=== PATIENT | male | born 1940 | race Caucasian/White ===

== ENCOUNTER 2019-01-30 17:42 | Observation (INO) ==
[2019-01-30 18:12] LABS: Basophils % 0.9 %; Eosinophils # 0.2 K/mcL (0.0-0.6); Eosinophils % 4.6 %; Hematocrit 28.8 % (37.5-50.1); Hemoglobin 9.4 g/dL (12.9-16.9); Immature Granulocytes % 0.3 % (0-4); Lymphocytes % 27.5 %; Mean Corpuscular HGB Conc 32.6 g/dL (31.6-35.5); Mean Platelet Volume 10.7 fL (9.4-12.4); Monocytes # 0.9 K/mcL (0.0-1.3); Monocytes % 26.3 %; Neutrophils # 1.4 K/mcL (1.6-8.9); Platelet Count 196 K/mcL (140-400); Red Blood Count 2.94 M/mcL (4.19-5.50); Red Cell Distribution Width 14.9 % (11.5-14.5); Segmented Neutrophils % 40.4 %; White Blood Count 3.5 K/mcL (4.3-11.1)
[2019-01-30 18:46] LABS: Calcium 9.2 mg/dL (8.6-10.3); Potassium 4.5 mEq/L (3.5-5.1); Troponin I 0.07 ng/mL (< 0.04)
[2019-01-30 18:47] LABS: Platelet Estimate Normal (Normal)
[2019-01-30] MEDS ORDERED: 0.9 % Sodium Chloride 1,000 ML IVC ONE (19:01)
[2019-01-30] MEDS ORDERED: Isovue-370 500 ML BOTTLE IVP ONE ×2 (19:01→19:45)
--- NOTE | 2019-01-30 19:23 | Emergency Department Note ---
Disposition Clinical Impression: Elevated troponin, Shortness of breath Community acquired pneumonia Qualifiers: Laterality: left Lung location: lower lobe of lung Qualified Code(s): J18.1 - Lobar pneumonia, unspecified organism Multiple myeloma Qualifiers: Multiple myeloma remission status: not in remission Qualified Code(s): C90.00 - Multiple myeloma not having achieved remission Disposition: Admitted As Inpatient Condition: Fair Time of Disposition: 23:49 General Adult HPI - General Chief complaint: ED Shortness of Breath/Dyspnea Stated complaint: ISABELA Time Seen by Provider: 01/30/19 18:47 Source: patient, family Mode of arrival: ambulatory Limitations: no limitations Nursing Notes Reviewed: Yes Vital Signs Reviewed: Yes - History of Present Illness HPI Narrative: 78-year-old male with significant past medical history of multiple myeloma currently on IV and oral chemotherapy and COPD with no oxygen requirement presenting to the emergency department chief complaint of shortness of breath. Patient states for the past 3 days he has had worsening shortness of breath and pleuritic chest pain on the left side. Last evening he had chest pain across his chest that spontaneously resolved so he did not come in for further evaluation. No history of coronary artery disease. No anticoagulation. Daughter at bedside states that the chemotherapy he is currently on was recently started approximately one month ago and they were told that this medication could cause blood clots. Patient denies any leg swelling, abdominal pain, nausea or vomiting. Denies any recent fevers. No sputum production. Pain Scale: 0 - Related Data Home Medications Medication Instructions Recorded Confirmed Albuterol Sulfate [Proair Hfa] 2 puff IH Q6HR PRN 08/08/18 01/31/19 Aspirin [Lo-Dose Aspirin EC] 81 mg PO DAILY 08/08/18 01/31/19 Cholecalciferol (Vitamin D3) 5,000 unit PO DAILY 08/08/18 01/31/19 [Vitamin D] Cyanocobalamin (Vitamin B-12) 2,500 mcg PO DAILY 08/08/18 01/31/19 [Vitamin B-12] Finasteride [Proscar] 5 mg PO DAILY 08/08/18 01/31/19 Gabapentin [Neurontin] 900 mg PO HS 08/08/18 01/31/19 GlipiZIDE XL (24 HR) [Glucotrol XL] 2.5 mg PO 0800 08/08/18 01/31/19 Losartan Potassium [Cozaar] 50 mg PO DAILY 08/08/18 01/31/19 Montelukast [Singulair] 10 mg PO HS 08/08/18 01/31/19 Multivit-Min/FA/Lycopen/Lutein 500 mg PO DAILY 08/08/18 01/31/19 [Centrum Silver Tablet] [place]-3/Dha/Epa/Fish Oil [Fish Oil 1 cap PO DAILY 08/08/18 01/31/19 1,000 mg Softgel] Pioglitazone HCl [Actos] 45 mg PO DAILY 08/08/18 01/31/19 Ranitidine HCl [Acid Hydro Mechanic] 150 mg PO BID 08/08/18 01/31/19 Simvastatin [Zocor] 40 mg PO HS 08/08/18 01/31/19 Fluticasone Propionate Nasal 1 spray NS DAILY PRN 11/29/18 01/31/19 [Flonase] Oxycodone HCl/Acetaminophen 1 each PO Q6HR PRN 12/27/18 01/31/19 [Percocet 10-325 mg Tablet] Lenalidomide [Revlimid] 10 mg PO DAILY 01/31/19 01/31/19 Umeclidinium Alexander [Incruse 1 puff IH DAILY 01/31/19 01/31/19 Ellipta] Previous Rx's Medication Instructions Recorded Ondansetron HCl 4 mg PO Q8HR PRN #20 tablet 09/13/18 Acyclovir [Zovirax] 400 mg PO BID 90 Days #180 tablet 11/21/18 Allergies Allergy/AdvReac Type Severity Reaction Status Date / Time No Known Allergies Allergy Verified 01/30/19 19:16 All systems ED: reviewed and negative except as stated. Constitutional: Denies: fever Eyes: Reports: as per HPI ENT ED: Reports: as per HPI Cardiovascular: Reports: chest pain Respiratory: Reports: dyspnea Gastrointestinal: Denies: abdominal pain Genitourinary: Reports: as per HPI Musculoskeletal: Reports: as per HPI Integumentary: Reports: as per HPI Neurological: Reports: as per HPI Psychiatric: Reports: as per HPI Endocrine: Reports: as per HPI Hematological/Lymphatic: Reports: as per HPI Allergic/Immunologic: Reports: as per HPI Past Medical History - Past Medical History Attestation: Yes The following information was validated with the patient. Medical history: Reports: COPD Surgical history: Reports: herniorrhaphy, orthopedic, other (Carpal tunnel release; Left hand surgery small finger), other (Tonsillectomy; Skin lesion removal) Psychiatric history: Reports: no psych history - Social History Smoking Status: Never smoker Smokeless Tobacco Status: No Alcohol use: Reports: none Drug use: Reports: none Physical Exam - General Limitations: no limitations General appearance: alert, in no apparent distress - Head Head exam: atraumatic, normocephalic, normal inspection - Eye Eye exam: Absent: scleral icterus - ENT ENT exam: mucous membranes moist - Neck Neck exam: Present: full ROM - Chest Chest inspection: Present: symmetric chest wall rise - Respiratory Respiratory exam: Present: normal lung sounds bilaterally. Absent: respiratory distress, wheezes - Cardiovascular Cardiovascular exam: Present: regular rate, normal rhythm, normal heart sounds - Abdominal Exam Abdominal exam: Present: soft, Non-Tender. Absent: distention, guarding, rebound - Extremities Exam Extremities exam: Present: full ROM - Neurological Exam Neurological exam: Present: alert, oriented X3 - Psychiatric Psychiatric exam: Present: normal affect - Skin Skin exam: Present: warm Course Course Narrative: 78-year-old male presenting for shortness of breath. In the room he is alert and oriented 3 and hemodynamically stable. Physical exam at this time is benign. No wheezing on exam. No obvious sign of fluid overload. Concern for PE at this time due to patient's multiple myeloma and new chemotherapy medication. Triage labs are completed prior to patient coming back to the room. They showed anemia with a hemoglobin of 9.4, creatinine of 2.03 and elevated troponin at 0.10. At this time we will provide the patient with a liter of fluids and perform a CTA of the chest. Disposition will be admission pending results. Patient agrees with this plan. - Reevaluation(s) Reevaluation #1: Patient CTA of the chest does not show PE but does show possible left lower lobe pneumonia. Patient CT of the abdomen and pelvis concerning for possible cholecystitis. Liver enzymes and lipase within normal limits. Negative Neves sign. At this time will plan to admit the patient on Zosyn for right upper quadrant ultrasound tomorrow. Patient will receive a full dose aspirin at this time. Patient remains alert and oriented 3 and hemodynamically stable. We will plan to admit the patient further evaluation and treatment. Patient and family members at bedside agreed this plan. I spoke with the hospitalist transfer iron operator Dr. Bhakta who agrees to accept the patient at this time. Vital Signs Temperature 97.9 F 01/30/19 17:43 Pulse Rate 64 01/30/19 17:43 Respiratory Rate 18 01/30/19 17:43 Blood Pressure 155/68 01/30/19 17:43 O2 Sat by Pulse Oximetry 98 01/30/19 17:43 Temperature 97.9 F 01/30/19 17:43 Pulse Rate 72 01/30/19 22:07 Respiratory Rate 16 01/30/19 23:39 Blood Pressure 149/73 01/30/19 23:39 O2 Sat by Pulse Oximetry 96 01/30/19 22:07 Oxygen Delivery Oxygen Delivery Room Air Medical Decision Making - Lab Data Result diagrams: 01/31/19 14:44 01/31/19 14:44 Lab Results 01/30/19 01/30/19 01/30/19 Range/Units 18:02 18:02 18:02 WBC 3.5 L (4.3-11.1) K/mcL RBC 2.94 L (4.19-5.50) M/mcL Hgb 9.4 L (12.9-16.9) g/dL Hct 28.8 L (37.5-50.1) % MCV 98.0 (83.0-100.0) fL MCH 32.0 (28.0-33.3) pg MCHC 32.6 (31.6-35.5) g/dL RDW 14.9 H (11.5-14.5) % Plt Count 196 (140-400) K/mcL MPV 10.7 (9.4-12.4) fL Immature Gran % 0.3 (0-4) % Seg Neutrophils % 40.4 % Lymphocytes % 27.5 % Monocytes % 26.3 % Eosinophils % 4.6 % Basophils % 0.9 % Neutrophils # 1.4 L (1.6-8.9) K/mcL Lymphocytes # 1.0 (0.6-4.6) K/mcL Monocytes # 0.9 (0.0-1.3) K/mcL Eosinophils # 0.2 (0.0-0.6) K/mcL Basophils # 0.0 (0.0-0.2) K/mcL Platelet Estimate Normal (Normal) Sodium 139 (136-145) mEq/L Potassium 4.5 (3.5-5.1) mEq/L Chloride 106 (98-107) mEq/L Carbon Dioxide 28 (23-29) mEq/L BUN 25 H (8-23) mg/dL Creatinine 2.03 H (0.70-1.30) mg/dL Est GFR ( Amer) 39 L (> 60) Est GFR (Non-Af Amer) 32 L (> 60) BUN/Creatinine Ratio 12 (6-26) Glucose 105 (70-105) mg/dL Calculated Osmolality 293 (280-300) Lactic Acid 0.6 (0.5-2.2) mmol/L Calcium 9.2 (8.6-10.3) mg/dL Total Bilirubin (0.3-1.0) mg/dL Direct Bilirubin (0.0-0.2) mg/dL Indirect Bilirubin (0.0-1.2) mg/dL AST (13-39) Units/L ALT (7-52) Units/L Alkaline Phosphatase (34-104) Units/L Troponin I 0.07 H* (< 0.04) ng/mL B-Natriuretic Peptide (Less than 100) pg/mL Serum Total Protein (6.4-8.9) g/dL Albumin (3.5-5.7) g/dL Globulin (2.4-3.5) g/dL Albumin/Globulin Ratio (1.1-2.2) Lipase (11-82) Units/L 01/30/19 01/30/19 Range/Units 18:02 21:59 WBC (4.3-11.1) K/mcL RBC (4.19-5.50) M/mcL Hgb (12.9-16.9) g/dL Hct (37.5-50.1) % MCV (83.0-100.0) fL MCH (28.0-33.3) pg MCHC (31.6-35.5) g/dL RDW (11.5-14.5) % Plt Count (140-400) K/mcL MPV (9.4-12.4) fL Immature Gran % (0-4) % Seg Neutrophils % % Lymphocytes % % Monocytes % % Eosinophils % % Basophils % % Neutrophils # (1.6-8.9) K/mcL Lymphocytes # (0.6-4.6) K/mcL Monocytes # (0.0-1.3) K/mcL Eosinophils # (0.0-0.6) K/mcL Basophils # (0.0-0.2) K/mcL Platelet Estimate (Normal) Sodium (136-145) mEq/L Potassium (3.5-5.1) mEq/L Chloride (98-107) mEq/L Carbon Dioxide (23-29) mEq/L BUN (8-23) mg/dL Creatinine (0.70-1.30) mg/dL Est GFR ( Amer) (> 60) Est GFR (Non-Af Amer) (> 60) BUN/Creatinine Ratio (6-26) Glucose (70-105) mg/dL Calculated Osmolality (280-300) Lactic Acid (0.5-2.2) mmol/L Calcium (8.6-10.3) mg/dL Total Bilirubin 0.5 (0.3-1.0) mg/dL Direct Bilirubin 0.1 (0.0-0.2) mg/dL Indirect Bilirubin 0.4 (0.0-1.2) mg/dL AST 21 (13-39) Units/L ALT 19 (7-52) Units/L Alkaline Phosphatase 38 (34-104) Units/L Troponin I (< 0.04) ng/mL B-Natriuretic Peptide 211 H (Less than 100) pg/mL Serum Total Protein 5.8 L (6.4-8.9) g/dL Albumin 3.7 (3.5-5.7) g/dL Globulin 2.1 L (2.4-3.5) g/dL Albumin/Globulin Ratio 1.8 (1.1-2.2) Lipase 17 (11-82) Units/L - EKG Data EKG #1 EKG attestation: Yes I reviewed and interpreted this EKG. EKG results narrative: Sinus rhythm. 60 beats for minute. NH interval 142, QRS 106, QTC 431. No sign of acute ST segment elevation or ischemia. Compared to previous EKG completed on 11/13/2014 no significant changes noted Attestation Statement - Attestation Attestation: I have seen this patient with the resident physician, I have personally evaluated this patient. I had reviewed the chart and document dictation by the resident physician and aM in agreement with the information documented by the resident physician. Please see documentation by the resident physician for complete chart including past medical history, family medical history, review of systems, current history and physical and laboratory and imaging studies. I was present for all procedures, provided direct supervision for all procedur es, was present for the entirety of all procedures and provided direct guidance during the procedures. Please see documentation by the resident physician for any procedures performed. I have reviewed all interpretations of EKGs, and reviewed all EKGs performed on patient's as well. I have also reviewed reports of imaging as provided by radiology.
[2019-01-30] MEDS ORDERED: Piperacillin/Tazobactam 3.375 GM in Water for inj. (sterile) 20 ML IVP ONE (21:39)
[2019-01-30] MEDS ORDERED: Aspirin 325 MG TABLET PO ONE (21:40)
--- NOTE | 2019-01-30 21:56 | Emergency Department Note ---
Disposition Clinical Impression: Community acquired pneumonia, Multiple myeloma, Elevated troponin, Shortness of breath Disposition: Admitted As Inpatient Condition: Fair Referrals: NONE,PCP [Primary Care Provider] - Forms: ED Satisfaction Letter Time of Disposition: 21:57 General Adult HPI - General Chief complaint: ED Shortness of Breath/Dyspnea Stated complaint: ISABELA Time Seen by Provider: 01/30/19 18:47 Source: patient, family Mode of arrival: ambulatory Limitations: no limitations Nursing Notes Reviewed: Yes Vital Signs Reviewed: Yes - History of Present Illness Pain Scale: 0 - Related Data Home Medications Medication Instructions Recorded Confirmed Albuterol Sulfate [Proair Hfa] 2 puff IH Q6HR PRN 08/08/18 01/11/19 Aspirin [Lo-Dose Aspirin EC] 81 mg PO DAILY 08/08/18 01/11/19 Cholecalciferol (Vitamin D3) 5,000 unit PO DAILY 08/08/18 01/11/19 [Vitamin D] Cyanocobalamin (Vitamin B-12) 2,500 mcg PO DAILY 08/08/18 01/11/19 [Vitamin B-12] Finasteride [Proscar] 5 mg PO DAILY 08/08/18 01/11/19 Gabapentin [Neurontin] 600 mg PO TID 08/08/18 01/11/19 GlipiZIDE XL (24 HR) [Glucotrol XL] 2.5 mg PO 0800 08/08/18 01/11/19 Losartan Potassium [Cozaar] 50 mg PO DAILY 08/08/18 01/11/19 Montelukast [Singulair] 10 mg PO HS 08/08/18 01/11/19 Multivit-Min/FA/Lycopen/Lutein 500 mg PO DAILY 08/08/18 01/11/19 [Centrum Silver Tablet] [place]-3/Dha/Epa/Fish Oil [Fish Oil 1 each PO DAILY 08/08/18 01/11/19 1,000 mg Softgel] Pioglitazone HCl [Actos] 45 mg PO DAILY 08/08/18 01/11/19 Ranitidine HCl [Acid Ladies' Hat Trimmer] 150 mg PO BID 08/08/18 01/11/19 Simvastatin [Zocor] 40 mg PO HS 08/08/18 01/11/19 Fluticasone Propionate Nasal 50 mcg NS AD 11/29/18 01/11/19 [Flonase] Oxycodone HCl/Acetaminophen 1 each PO PRN PRN 12/27/18 01/11/19 [Percocet 10-325 mg Tablet] Previous Rx's Medication Instructions Recorded Varicella-Zoster Ge/As01b/Pf 50 mcg IM ONCE #1 kit 08/21/18 [Shingrix Vial Kit] Ondansetron HCl 4 mg PO Q8HR PRN #20 tablet 09/13/18 Acyclovir [Zovirax] 400 mg PO BID 90 Days #180 tablet 11/21/18 Allergies Allergy/AdvReac Type Severity Reaction Status Date / Time No Known Allergies Allergy Verified 01/30/19 19:16 All systems ED: reviewed and negative except as stated. Review of Systems: As Per HPI Constitutional: Denies: fever Eyes: Reports: as per HPI ENT ED: Reports: as per HPI Cardiovascular: Reports: chest pain Respiratory: Reports: dyspnea Gastrointestinal: Denies: abdominal pain Genitourinary: Reports: as per HPI Musculoskeletal: Reports: as per HPI Integumentary: Reports: as per HPI Neurological: Reports: as per HPI Psychiatric: Reports: as per HPI Endocrine: Reports: as per HPI Hematological/Lymphatic: Reports: as per HPI Allergic/Immunologic: Reports: as per HPI Past Medical History - Past Medical History Medical history: Reports: COPD Surgical history: Reports: herniorrhaphy, orthopedic, other (Carpal tunnel release; Left hand surgery small finger), other (Tonsillectomy; Skin lesion removal) Psychiatric history: Reports: no psych history - Social History Smoking Status: Never smoker Smokeless Tobacco Status: No Alcohol use: Reports: none Drug use: Reports: none Physical Exam - General Limitations: no limitations General appearance: alert, in no apparent distress Course Vital Signs Temperature 97.9 F 01/30/19 17:43 Pulse Rate 64 01/30/19 17:43 Respiratory Rate 18 01/30/19 17:43 Blood Pressure 155/68 01/30/19 17:43 O2 Sat by Pulse Oximetry 98 01/30/19 17:43 Temperature 97.9 F 01/30/19 17:43 Pulse Rate 70 01/30/19 18:51 Respiratory Rate 18 01/30/19 17:43 Blood Pressure 167/132 01/30/19 18:51 O2 Sat by Pulse Oximetry 98 01/30/19 18:51 Oxygen Delivery Oxygen Delivery Room Air Medical Decision Making - Lab Data Result diagrams: 01/30/19 18:02 01/30/19 18:02 Lab Results 01/30/19 01/30/19 01/30/19 Range/Units 18:02 18:02 18:02 WBC 3.5 L (4.3-11.1) K/mcL RBC 2.94 L (4.19-5.50) M/mcL Hgb 9.4 L (12.9-16.9) g/dL Hct 28.8 L (37.5-50.1) % MCV 98.0 (83.0-100.0) fL MCH 32.0 (28.0-33.3) pg MCHC 32.6 (31.6-35.5) g/dL RDW 14.9 H (11.5-14.5) % Plt Count 196 (140-400) K/mcL MPV 10.7 (9.4-12.4) fL Immature Gran % 0.3 (0-4) % Seg Neutrophils % 40.4 % Lymphocytes % 27.5 % Monocytes % 26.3 % Eosinophils % 4.6 % Basophils % 0.9 % Neutrophils # 1.4 L (1.6-8.9) K/mcL Lymphocytes # 1.0 (0.6-4.6) K/mcL Monocytes # 0.9 (0.0-1.3) K/mcL Eosinophils # 0.2 (0.0-0.6) K/mcL Basophils # 0.0 (0.0-0.2) K/mcL Platelet Estimate Normal (Normal) Sodium 139 (136-145) mEq/L Potassium 4.5 (3.5-5.1) mEq/L Chloride 106 (98-107) mEq/L Carbon Dioxide 28 (23-29) mEq/L BUN 25 H (8-23) mg/dL Creatinine 2.03 H (0.70-1.30) mg/dL Est GFR ( Amer) 39 L (> 60) Est GFR (Non-Af Amer) 32 L (> 60) BUN/Creatinine Ratio 12 (6-26) Glucose 105 (70-105) mg/dL Calculated Osmolality 293 (280-300) Lactic Acid 0.6 (0.5-2.2) mmol/L Calcium 9.2 (8.6-10.3) mg/dL Troponin I 0.07 H* (< 0.04) ng/mL B-Natriuretic Peptide (Less than 100) pg/mL 01/30/19 Range/Units 18:02 WBC (4.3-11.1) K/mcL RBC (4.19-5.50) M/mcL Hgb (12.9-16.9) g/dL Hct (37.5-50.1) % MCV (83.0-100.0) fL MCH (28.0-33.3) pg MCHC (31.6-35.5) g/dL RDW (11.5-14.5) % Plt Count (140-400) K/mcL MPV (9.4-12.4) fL Immature Gran % (0-4) % Seg Neutrophils % % Lymphocytes % % Monocytes % % Eosinophils % % Basophils % % Neutrophils # (1.6-8.9) K/mcL Lymphocytes # (0.6-4.6) K/mcL Monocytes # (0.0-1.3) K/mcL Eosinophils # (0.0-0.6) K/mcL Basophils # (0.0-0.2) K/mcL Platelet Estimate (Normal) Sodium (136-145) mEq/L Potassium (3.5-5.1) mEq/L Chloride (98-107) mEq/L Carbon Dioxide (23-29) mEq/L BUN (8-23) mg/dL Creatinine (0.70-1.30) mg/dL Est GFR ( Amer) (> 60) Est GFR (Non-Af Amer) (> 60) BUN/Creatinine Ratio (6-26) Glucose (70-105) mg/dL Calculated Osmolality (280-300) Lactic Acid (0.5-2.2) mmol/L Calcium (8.6-10.3) mg/dL Troponin I (< 0.04) ng/mL B-Natriuretic Peptide 211 H (Less than 100) pg/mL Attestation Statement - Attestation Attestation: I have seen this patient with the resident physician, I have personally evaluated this patient. I had reviewed the chart and document dictation by the resident physician and aM in agreement with the information documented by the resident physician. Please see documentation by the resident physician for complete chart including past medical history, family medical history, review of systems, current history and physical and laboratory and imaging studies. I was present for all procedures, provided direct supervision for all procedures, was present for the entirety of all procedures and provided direct guidance during the procedures. Please see documentation by the resident physician for any procedures performed. I have reviewed all interpretations of EKGs, and reviewed all EKGs performed on patient's as well. I have also reviewed reports of imaging as provided by radiology. Patient presented to the emergency department with several concerns. The patient is currently undergoing treatment for multiple myeloma and currently getting injections of chemotherapy, which she was told would make him potential hypercoagulable. The patient states that over the last 4 days he has been having left-sided pleuritic chest pain as well as some right sided pain. He states that he has also had progressive shortness of breath. The patient states that he has this weird pain seems to wrap around both sides but his left seems to be worse he states that when he breathes it hurts he states that the majority of the pain seems to go up into his chest but he also has some pain into his abdomen. He states that he also had an injection into his back the same day that this started but denies any increasing back pain denies numbness weakness or bowel or bladder incontinence. He states that he just does not feel well he has not documented any fevers he has a history of COPD but states that he does not feel like he has been wheezing denies headache or neck pain. He has not had any specific leg pain or leg swelling. [place] he states they did get out and PE several times because her with her grandkids never sat for more than 4 hours at a time no history of prior blood clots. He states that may be eating sometimes gives him some pain but did not have any pain with eating today and states that really he does not feel like eating is been a problem and that more of his pain is in his chest and not in his abdomen. On physical examination he is alert oriented 3 nontoxic in appearance in no acute distress cranial nerves are grossly intact. Oropharynx is normal. Lungs slightly diminished at the bases but no focal adventitious sounds. No CVAT wheezing. No increased work of breathing. Abdomen is soft, no CVAT reproducible tenderness of the abdomen or pelvis, some very mild epigastric tenderness which does not reproduce his reported pain. No palpable or pulsatile masses. Trace bilateral lower extremity edema without evidence of DVT skin is warm dry without rash or petechiae or jaundice. No focal neurologic findings. EKG was a normal sinus rhythmof acute ischemic dysrhythmia or hyperkalemia. CBC demonstrated mild leukopenia with a total of blood cell count 3.5, his neutrophil count was 1400, just below 1500, however above thousand without true neutropenia. Cardiac enzymes revealed a troponin of 0.07, renal panel showed a creatinine of 2 which was stable. Secondary to his history of cancer, pleuritic chest pain and shortness of breath a CT scan with IV contrast for pulmonary embolism was ordered, secondary to him complaining of some pain below his diaphragm a CT scan of the abdomen and pelvis was also ordered, and secondary to him receiving a reported back injection prior to the initiation of his symptoms, CT scan of his lumbar spine was ordered to make sure there was no evidence to suggest transverse myelitis or acute infectious process of the bony structures or acute abnormality in this regard. The patient was consented for receiving IV contrast secondary to creatinine of 2.0, explained risks and benefits, especially with his history of prior cancer and active chemotherapy and pleuritic chest pain and shortness of breath. He is agreeable to the CT with IV contrast and understands the risks. CT scan of the chest showed poor contrast timing but no obvious pulmonary embolism, there was a left lower lobe pneumonia noted. CT of the abdomen and pelvis demonstrated findings of possible cholecystitis with right upper quadrant findings of mild gallbladder wall thickening potential pericholecystic fluid. Patient was given IV Zosyn for pneumonia and possible cholecystitis although on repeat abdominal examination he does not have right upper quadrant pain but we added LFTs and a lipase if these are elevated will consult surgery as well. Troponin was borderline at 0.07 he was given aspirin, does not currently have chest pain with a normal. EKG, with troponin only being slightly elevated at 0.07 will not initiate heparin at this time. Patient will be admitted to the hospital for further evaluation and management.
[2019-01-30 22:31] LABS: Albumin 3.7 g/dL (3.5-5.7); Albumin/Globulin Ratio 1.8 (1.1-2.2); Bilirubin,Direct 0.1 mg/dL (0.0-0.2); Bilirubin,Indirect 0.4 mg/dL (0.0-1.2); Bilirubin,Total 0.5 mg/dL (0.3-1.0); Globulin 2.1 g/dL (2.4-3.5); Total Protein 5.8 g/dL (6.4-8.9)
[2019-01-31] MEDS ORDERED: Ondansetron ODT 4 MG TAB.RAPDIS SL PRN (02:51)
[2019-01-31] MEDS ORDERED: Naloxone 0.4 MG/ML INJ IVP PRN (02:51)
--- NOTE | 2019-01-31 02:51 | Internal Med History&Physical ---
<Deyanira Talavera - Last Filed: 01/31/19 06:29> Date of Encounter: 01/31/19 Time of Encounter: 02:30 Internal Medicine - H&P: HPI Chief complaint: Shortnes of breath History of present illness: Mr. Moyer is a 78 year old male with pmhx of multiple myeloma, COPD, and DM2 presents with increasing shortness of breath for 2 days. Patient states his shortness of breath started 2 days ago with gradual onset. He came home from vacation on Monday where he was on a car ride that was about 8-9 hours total. He states they intermittently stopped through the trip and stayed overnight. But during the trip he was fatigued but not short of breath. His SOB began Monday, where he noticed he became more dyspneac on exertion and during rest. he also noticed b/l rib cage pain that radiated from back to front and tightness in his chest and lungs. Patient states this rib cage pain was 10/10 prior to arrival to ED. Patient states lying flat made it worse, and he used his inhaler, and his other COPD medications without relief of his shortness of breath. Patient states he initially attributed his rib cage pain to his back pain which is chronic in nature. Patient took his oxycodone, and gabapentin on the night prior, which gave him some sleep but did not improve his shortness of breath. Patient recently completed his outpatient chemotherapy on Monday due to concerns for complications of his chemotherapy which includes blood clots and his increasing shortness of breath patients urged him to come to ED. Since onset of symptoms patient denies diaphoresis, dizziness, blurred vision, falls, hematuria, hematochezia, or diarrhea. On arrival to ED patient remained afebrile and hemodynamically stable. Patient still stated he still had some bilateral rib pain, and back pain, and left upper quadrant pain. Patient is currently admitted with concerns for possible pneumonia, cholecystitis, PE, NJ, BEVERLEY. Past Med Surg Social Fam HX - Past Medical History Medical history: COPD Psychiatric history: no psych history - Past Surgical History Surgical History: herniorrhaphy, orthopedic, other, other Additional surgical history: t&a, hernia repair, colonoscopy, CTR, skin lesion removed, hear cath. - Social History Smoking Status: Never smoker Smokeless Tobacco Status: No Alcohol use: none Drug use: none Internal Medicine - H&P: Meds Albuterol Sulfate [Proair Hfa] 2 puff IH Q6HR PRN 08/08/18 [History] Aspirin [Lo-Dose Aspirin EC] 81 mg PO DAILY 08/08/18 [History] Cholecalciferol (Vitamin D3) [Vitamin D] 5,000 unit PO DAILY 08/08/18 [History] Cyanocobalamin (Vitamin B-12) [Vitamin B-12] 2,500 mcg PO DAILY 08/08/18 [History] Finasteride [Proscar] 5 mg PO DAILY 08/08/18 [History] Gabapentin [Neurontin] 900 mg PO HS 08/08/18 [History] GlipiZIDE XL (24 HR) [Glucotrol XL] 2.5 mg PO 0800 08/08/18 [History] Losartan Potassium [Cozaar] 50 mg PO DAILY 08/08/18 [History] Montelukast [Singulair] 10 mg PO HS 08/08/18 [History] Multivit-Min/FA/Lycopen/Lutein [Centrum Silver Tablet] 500 mg PO DAILY 08/08/18 [History] [place]-3/Dha/Epa/Fish Oil [Fish Oil 1,000 mg Softgel] 1 each PO DAILY 08/08/18 [History] Pioglitazone HCl [Actos] 45 mg PO DAILY 08/08/18 [History] Ranitidine HCl [Acid Special Services Agent] 150 mg PO BID 08/08/18 [History] Simvastatin [Zocor] 40 mg PO HS 08/08/18 [History] Ondansetron HCl 4 mg PO Q8HR PRN #20 tablet 09/13/18 [Rx] Acyclovir [Zovirax] 400 mg PO BID 90 Days #180 tablet 11/21/18 [Rx] Fluticasone Propionate Nasal [Flonase] 50 mcg NS AD 11/29/18 [History] Oxycodone HCl/Acetaminophen [Percocet 10-325 mg Tablet] 1 each PO Q8HR PRN 12/27/18 [History] Ondansetron HCl [Zofran] 4 mg PO Q8HR 01/31/19 [History] Allergy/AdvReac Type Severity Reaction Status Date / Time No Known Allergies Allergy Verified 01/30/19 19:16 All Systems PM: A 10-system review of systems was performed and is negative for pertinent findings except as documented above in the HPI. Review of systems: Constitutional: Denies Fever, Chills, Headache, Dizziness Respiratory: Denies Chronic cough, hemoptysis, admits Dyspnea at rest, and activity, Shortness of breath Cardiovascular: Denies Chest pain, Syncope, Peripheral edema , palpitations Gastrointestinal: Denies hematochezia, Abdominal pain, admits mild nausea, vomiting Genitourinary: Denies Painful urination, hematuria, urinary retention Endocrine: denies unintentional Significant weight changes Skin: Denies rashes, or unexplained bruising - Constitutional Vitals: Temp Pulse Resp BP Pulse Ox 98.2 F 71 17 156/68 94 01/31/19 00:08 01/31/19 00:08 01/31/19 00:08 01/31/19 00:08 01/31/19 00:08 Exam: Gen: alert/orientedx3, no acute distress. Head: atraumatic, normocephalic. ENT: no oropharyngeal erythema, mucous membranes moist. Neck: No thyromegaly appreciated. Neck supple no cervical lymphadenopathy. Resp: CTAB, no wheezing, rhonchi, or rhales. Chest: anterior and lateral Ribs tender to palpation b/l. sternum tender to palpation at costocondral junctions of L ribs 5-7 CV: RRR, Normal S1 and S2. No murmur, gallops, or rubs. GI/Abdominal exam: bowel sounds throughout, obese soft, mildly tender to palpation on RUQ, negative urena sign, non-distended; no hepatosplenomegaly Skin: intact; no rashes, lesions, or bruising. Ext: No cyanosis but +2 pitting edema in LE b/l. pulses +2/4 bilaterally UE and LE. Neuro: no focal deficits, cooperative with exam. Internal Med - H&P Results - Labs CBC & Chem 7: 01/30/19 18:02 01/30/19 18:02 Labs: Short CBC 01/30/19 Range/Units 18:02 WBC 3.5 L (4.3-11.1) K/mcL Hgb 9.4 L (12.9-16.9) g/dL Hct 28.8 L (37.5-50.1) % Plt Count 196 (140-400) K/mcL Neutrophils # 1.4 L (1.6-8.9) K/mcL BMP 01/30/19 18:02 Sodium 139 Potassium 4.5 Chloride 106 Carbon Dioxide 28 BUN 25 H Creatinine 2.03 H Glucose 105 Calcium 9.2 Cardiac Enzymes 01/30/19 Range/Units 18:02 Troponin I 0.07 H* (< 0.04) ng/mL Liver Function 01/30/19 Range/Units 21:59 Total Bilirubin 0.5 (0.3-1.0) mg/dL Direct Bilirubin 0.1 (0.0-0.2) mg/dL AST 21 (13-39) Units/L ALT 19 (7-52) Units/L Alkaline Phosphatase 38 (34-104) Units/L Albumin 3.7 (3.5-5.7) g/dL - Impressions ITS Impressions Chest X-Ray 01/30/19 19:11 IMPRESSION: Mild central vascular congestion. Patchy areas of atelectasis or pneumonia. Left basilar atelectasis or scarring. Bilateral calcified pleural plaques. D/ / 01/30/2019 19:16:44 Geovanni Davenport MD / oniel Interpreting Provider: Geovanni Davenport MD Abdomen/Pelvis CT 01/30/19 21:18 IMPRESSION: Moderate retained stool throughout the colon without bowel obstruction. Mild gallbladder wall thickening and suspected minimal pericholecystic fluid. Please correlate with LFTs. Mild wall thickening of the urinary bladder may related to underdistention. Please correlate with urinalysis findings. D/ / Bang Goel / Bang Goel Interpreting Provider: Bang Goel Lumbar Spine CT 01/30/19 21:20 IMPRESSION: Multilevel degenerative disc and facet disease, greatest L3-L4, where there is severe central canal stenosis. No acute fracture or traumatic malalignment. D/ / Min Hansen MD / Min Hansen MD Interpreting Provider: Min Hansen MD Chest CTA 01/30/19 21:24 IMPRESSION: Suboptimal pulmonary arterial contrast bolus, limiting evaluation of the segmental and subsegmental pulmonary arterial branches. No central pulmonary embolism is detected. Collapse and consolidation within the left lower lobe, some combination of atelectasis, pneumonia, and aspiration. Patulous esophagus. Correlate with any clinical evidence of dysphagia. D/ / Min Hansen MD / Min Hansen MD Interpreting Provider: Min Hansen MD - Assessment and Plan (1) Shortness of breath Current Visit: Yes Status: Acute Assessment and plan: Patient is 78-year-old male with past medical history of multiple myeloma, COPD, who presents with increasing shortness of breath for 2 days. On arrival to ED CTA of chest was obtained, CT abdomen was obtained troponins were obtained. CTA of the chest shows collapse and consolidation within the left lower lobe some combination of atelectasis, pneumonia and aspiration. Abdomen showed mild gallbladder wall thickening suspected minimal pericholecystic fluid. Initial troponins are elevated at .07, .07. Due to patient's immune compromised status We will treat for pneumonia and continue to rule out PE, NJ, cholelithiasis. plan: - Obtain Procal level - Obtain bilateral lower extremity Doppler ultrasound - obtain echocardiogram (2) Community acquired pneumonia Current Visit: Yes Status: Acute Assessment and plan: CTA of the chest shows concern for pneumonia. Due to patient's immunocompromise state will continue to treat for pneumonia. Plan; -Continue Vancomycin and Zosyn for pnuemonia - encourage incentive spirometry - f/u procal Qualifiers: Laterality: left Lung location: lower lobe of lung Qualified Code(s): J18.1 - Lobar pneumonia, unspecified organism (3) RUQ abdominal pain Current Visit: Yes Status: Acute Assessment and plan: CT of abdomen showed Mild gallbladder wall thickening and suspected minimal pericholecystic fluid. in the setting of patient with RUQ pain. and b/l rib pain. plan: - will obtain RUQ gall bladder US. - NPO in case patient needs further intervention for gallbladder. (4) Multiple myeloma Current Visit: Yes Status: Acute Assessment and plan: Patient is currently being treated for multiple myeloma and is being followed by [facility]. Recently completed a course of Chemotherapy outpatient. Plan: - continue to monitor CBC and CMP - Consider consulting Oncology team for further recs on treatment while inpatient. Qualifiers: Multiple myeloma remission status: not in remission Qualified Code(s): C90.00 - Multiple myeloma not having achieved remission (5) CKD (chronic kidney disease), stage III Current Visit: Yes Status: Acute Assessment and plan: Patient is a 78Yo male with PMH of CKD3 and DM2 who presents with possible BEVERLEY in the setting of possible pneumonia and CT findings of Mild gallbladder wall thickening and RUQ pain. Will continue to treat for pneumonia but will give fluids for renal protection and hydration. Plan: - 1L IV fluids .9 NS at 125mls/hr for renal protection due to vancomycin and zosyn antiobitics. - patient is currently NPO in case intervention is necessary for gallbladder. (6) Type 2 diabetes mellitus Current Visit: Yes Status: Acute Assessment and plan: Plan: - will place on Q6H insulin while on NPO only. - SSI after meals and at bedtime while on diabetic diet. - basal insulin at bedtime (7) DVT prophylaxis Current Visit: Yes Status: Acute Assessment and plan: SCDs - Time Spent With Patient Total time spent is greater than 50% in coordination of care (as documented) at patient's floor/unit and/or counseling patient: <David Bhakta Juan A - Last Filed: 01/31/19 08:35> Date of Encounter: 01/31/19 Internal Medicine - H&P: HPI History of present illness: Mr. Moyer is a 78 year old male All Systems PM: A 10-system review of systems was performed and is negative for pertinent findings except as documented above in the HPI. - Constitutional Vitals: Temp Pulse Resp BP Pulse Ox 97.7 F 70 18 164/64 95 01/31/19 07:34 01/31/19 07:34 01/31/19 07:34 01/31/19 07:34 01/31/19 07:34 Internal Med - H&P Results - Labs CBC & Chem 7: 01/30/19 18:02 01/30/19 18:02 Labs: Short CBC 01/30/19 Range/Units 18:02 WBC 3.5 L (4.3-11.1) K/mcL Hgb 9.4 L (12.9-16.9) g/dL Hct 28.8 L (37.5-50.1) % Plt Count 196 (140-400) K/mcL Neutrophils # 1.4 L (1.6-8.9) K/mcL BMP 01/30/19 18:02 Sodium 139 Potassium 4.5 Chloride 106 Carbon Dioxide 28 BUN 25 H Creatinine 2.03 H Glucose 105 Calcium 9.2 Cardiac Enzymes 01/30/19 01/31/19 Range/Units 18:02 03:27 Troponin I 0.07 H* 0.07 H* (< 0.04) ng/mL Liver Function 01/30/19 Range/Units 21:59 Total Bilirubin 0.5 (0.3-1.0) mg/dL Direct Bilirubin 0.1 (0.0-0.2) mg/dL AST 21 (13-39) Units/L ALT 19 (7-52) Units/L Alkaline Phosphatase 38 (34-104) Units/L Albumin 3.7 (3.5-5.7) g/dL - Impressions ITS Impressions Chest X-Ray 01/30/19 19:11 IMPRESSION: Mild central vascular congestion. Patchy areas of atelectasis or pneumonia. Left basilar atelectasis or scarring. Bilateral calcified pleural plaques. D/ / 01/30/2019 19:16:44 Geovanni Davenport MD / oniel Interpreting Provider: Geovanni Davenport MD Abdomen/Pelvis CT 01/30/19 21:18 IMPRESSION: Moderate retained stool throughout the colon without bowel obstruction. Mild gallbladder wall thickening and suspected minimal pericholecystic fluid. Please correlate with LFTs. Mild wall thickening of the urinary bladder may related to underdistention. Please correlate with urinalysis findings. D/ / Bang Goel / Bang Goel Interpreting Provider: Bang Goel Lumbar Spine CT 01/30/19 21:20 IMPRESSION: Multilevel degenerative disc and facet disease, greatest L3-L4, where there is severe central canal stenosis. No acute fracture or traumatic malalignment. D/ / Min Hansen MD / Min Hansen MD Interpreting Provider: Min Hansen MD Chest CTA 01/30/19 21:24 IMPRESSION: Suboptimal pulmonary arterial contrast bolus, limiting evaluation of the segmental and subsegmental pulmonary arterial branches. No central pulmonary embolism is detected. Collapse and consolidation within the left lower lobe, some combination of atelectasis, pneumonia, and aspiration. Patulous esophagus. Correlate with any clinical evidence of dysphagia. D/ / Min Hansen MD / Min Hansen MD Interpreting Provider: Min Hansen MD - Time Spent With Patient Total time spent is greater than 50% in coordination of care (as documented) at patient's floor/unit and/or counseling patient: - Attending Attestation I saw and evaluated the patient. I reviewed the residents note, performed my own physical examination and agree with findings and plan as documented in the residents note. Patient seen and examined on 01/31/19 at 630am. Patient resting comfortably in the hospital bed in no acute distress. Possible pneumonia, with collapse of left lower lobe of the lung on CT. Patient also has possible cholecystitis. Obtaining further workup this morning as above. May consider pulmonology consult for lung collapse, unclear how chronic this is. 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 Patient currently undergoing treatment for multiple myeloma as well.
[2019-01-31] MEDS ORDERED: Gabapentin 300 MG CAPSULE PO SCH (03:00)
[2019-01-31] MEDS: Acyclovir 200 MG CAPSULE PO SCH ×2 (03:42→08:31)
[2019-01-31] MEDS ORDERED: *HR* OxyCODONE/APAP 10/325 TABLET PO SCH ×2 (04:00→09:00)
[2019-01-31] MEDS ORDERED: Piperacillin/Tazobactam 3.375 GM in 0.9 % Sodium Chloride Mini Bag 100 ML IVPB SCH (06:00)
[2019-01-31] MEDS: 0.9 % Sodium Chloride 1,000 ML IVC SCH ×3 (06:47→20:20)
[2019-01-31] MEDS ORDERED: Dextrose Gel 15 GM/37.5 ML TUBE PO PRN ×2 (06:48)
[2019-01-31] MEDS ORDERED: *HR* Dextrose 50 % in Water (Syg) 50 ML SYRINGE IVP PRN (06:48)
[2019-01-31] MEDS ORDERED: D5% in Water 1,000 ML IVC PRN (06:48)
[2019-01-31] MEDS: Insulin LISPRO 300 UNITS/3 ML VIAL SQ SCH ×3 (07:00→17:37)
--- NOTE | 2019-01-31 08:00 | Internal Med Progress Note ---
<Alex Moses - Last Filed: 01/31/19 14:33> Hospitalist Progress Note - Encounter Date of Encounter: 01/31/19 Time of Encounter: 14:33 - Exam Vitals: Temp Pulse Resp BP Pulse Ox 97.7 F 66 18 150/88 96 01/31/19 12:12 01/31/19 12:12 01/31/19 12:12 01/31/19 12:12 01/31/19 12:12 - Time Spent with Patient Total time spent is greater than 50% in coordination of care (as documented) at patient's floor/unit and/or counseling patient: Internal Medicine: Result - Labs CBC & Chem 7: 01/30/19 18:02 01/30/19 18:02 Labs: Short CBC 01/30/19 Range/Units 18:02 WBC 3.5 L (4.3-11.1) K/mcL Hgb 9.4 L (12.9-16.9) g/dL Hct 28.8 L (37.5-50.1) % Plt Count 196 (140-400) K/mcL Neutrophils # 1.4 L (1.6-8.9) K/mcL BMP 01/30/19 18:02 Sodium 139 Potassium 4.5 Chloride 106 Carbon Dioxide 28 BUN 25 H Creatinine 2.03 H Glucose 105 Calcium 9.2 Cardiac Enzymes 01/30/19 01/31/19 01/31/19 Range/Units 18:02 03:27 09:07 Troponin I 0.07 H* 0.07 H* 0.06 H* (< 0.04) ng/mL Liver Function 01/30/19 Range/Units 21:59 Total Bilirubin 0.5 (0.3-1.0) mg/dL Direct Bilirubin 0.1 (0.0-0.2) mg/dL AST 21 (13-39) Units/L ALT 19 (7-52) Units/L Alkaline Phosphatase 38 (34-104) Units/L Albumin 3.7 (3.5-5.7) g/dL - Impressions Impressions Chest X-Ray 01/30/19 19:11 IMPRESSION: Mild central vascular congestion. Patchy areas of atelectasis or pneumonia. Left basilar atelectasis or scarring. Bilateral calcified pleural plaques. D/ / 01/30/2019 19:16:44 Geovanni Davenport MD / oniel Interpreting Provider: Geovanni Davenport MD Abdomen/Pelvis CT 01/30/19 21:18 IMPRESSION: Moderate retained stool throughout the colon without bowel obstruction. Mild gallbladder wall thickening and suspected minimal pericholecystic fluid. Please correlate with LFTs. Mild wall thickening of the urinary bladder may related to underdistention. Please correlate with urinalysis findings. D/ / Bang Goel / Bang Goel Interpreting Provider: Bang Goel Lumbar Spine CT 01/30/19 21:20 IMPRESSION: Multilevel degenerative disc and facet disease, greatest L3-L4, where there is severe central canal stenosis. No acute fracture or traumatic malalignment. D/ / Min Hansen MD / Min Hansen MD Interpreting Provider: Min Hansen MD Chest CTA 01/30/19 21:24 IMPRESSION: Suboptimal pulmonary arterial contrast bolus, limiting evaluation of the segmental and subsegmental pulmonary arterial branches. No central pulmonary embolism is detected. Collapse and consolidation within the left lower lobe, some combination of atelectasis, pneumonia, and aspiration. Patulous esophagus. Correlate with any clinical evidence of dysphagia. D/ / Min Hansen MD / Min Hansen MD Interpreting Provider: Min Hansen MD Gallbladder Ultrasound 01/31/19 10:12 IMPRESSION: 2-3 mm gallbladder polyp. No additional follow-up is warranted. 9 mm simple right renal cyst. D/ / 01/31/2019 10:52:37 Carlos Pablo MD / Makayla Baldwin Interpreting Provider: Carlos Pablo MD Echocardiogram 01/31/19 10:19 Impressions: LVEF 60-65%. Mild left ventricular diastolic dysfunction. Mild pulmonary hypertension. No significant valvular dysfunction. Left Ventricular Wall Motion: Rest Echo Findings All wall segments showed normal motion. Findings: Study Quality * Technically adequate exam. Right Ventricle * Normal right ventricular structure and function. Aortic Valve * Trileaflet aortic valve with normal function. Interatrial Septum * No evidence of PFO by color Doppler. Aorta * Normally sized aortic root. Pericardium * The pericardium appears normal. Left Ventricle * LVEF 60-65%. * Mild left ventricular diastolic dysfunction. Mitral Valve * Normal mitral valve structure. * No mitral stenosis. * Trace mitral regurgitation. Tricuspid Valve * Trace tricuspid regurgitation. * No tricuspid stenosis. * Estimated RVSP is 36 mmHg. * Estimated RA pressure is 5-10 mmHg. * Mild pulmonary hypertension. Pulmonic Valve * No pulmonic stenosis. * No pulmonic regurgitation. Left Atrium * Mildly dilated left atrium. Right Atrium * Moderately dilated right atrium. IVC * The IVC is dilated. * > 50% respiratory change Consult Discharge Plan - Plan Referrals: NONE,PCP [Primary Care Provider] - - Attending Attestation I saw evaluated and examined this patient and reviewed objective data including labs and my medical decision-making was reviewed with the Resident Physician, Lesli Roman. I agree with the documented findings, disposition and treatment plan as described except to any changes set forth below. We independently had [id number] contact with the patient. Patient hospitalized for possible pneumonia with collapse of left lower lobe of the lung. Also concerning for possible acute cholecystitis. Currently on broad-spectrum antibiotics due to history of underlying multiple myeloma. Consult pulmonology to evaluate to see if patient would need bronchoscopy. Gallbladder ultrasound shows 2-3 mL gallbladder polyp. No signs of cholecystitis. He is still clinically and alkaline phosphatase levels are normal. Bilirubin is also normal. Patient does have mild elevation in troponin and echocardiogram done shows normal ejection fraction of 60-65% with mild left ventricular diastolic dysfunction. Continue supportive care. Patient does have underlying chronic kidney disease stage III. Creatinine slightly above baseline. Continue gentle IV hydration. CT also showed patulous esophagus and may be resulting in aspiration causing pneumonia. We will consult speech therapy for evaluation. May consider further GI workup eventually. <Lesli Roman I - Last Filed: 01/31/19 17:29> Hospitalist Progress Note - Encounter Date of Encounter: 01/31/19 - Subjective Interval History: Patient is seen and examined today . He is breathing better ,still complains of some chest pain . Tia fever , no nausea or vomiting , poor oral intake , able to make urine . Denies diaphoresis, dizziness, blurred vision, falls, hematuria, hematochezia, or diarrhea. - Exam Vitals: Temp Pulse Resp BP Pulse Ox 97.7 F 70 18 164/64 95 01/31/19 07:34 01/31/19 07:34 01/31/19 07:34 01/31/19 07:34 01/31/19 07:34 Exam: Gen: alert/orientedx3, no acute distress. Head: atraumatic, normocephalic. ENT: no oropharyngeal erythema, mucous membranes moist. Neck: No thyromegaly appreciated. Neck supple no cervical lymphadenopathy. Resp: CTAB, no wheezing, rhonchi, or rhales. Chest: anterior and lateral Ribs tender to palpation b/l. sternum tender to palpation at costocondral junctions of L ribs 5-7 CV: RRR, Normal S1 and S2. No murmur, gallops, or rubs. GI/Abdominal exam: bowel sounds throughout, obese soft, mildly tender to palpation on RUQ, negative urena sign, non-distended; no hepatosplenomegaly Skin: intact; no rashes, lesions, or bruising. Ext: No cyanosis but +2 pitting edema in LE b/l. pulses +2/4 bilaterally UE and LE. Neuro: no focal deficits, cooperative with exam. - Assessment and Plan (1) Community acquired pneumonia Current Visit: Yes Status: Acute Assessment and Plan: CTA of the chest shows Collapse and consolidation within the left lower lobe, some combination of atelectasis, pneumonia, and aspiration. currently afebrile ,wbc 3.8 , procalcitonin 0.05 , blood culture is pending Continue Vancomycin and Zosyn for pnuemonia today is day 2 encourage incentive spirometry Consult pulmonology to evaluate to see if patient would need bronchoscopy and they recommend doing bronchoscopy tomorrow to rule out any endobronchial obstruction mucous plug (2) RUQ abdominal pain Current Visit: Yes Status: Acute Assessment and Plan: Gallbladder ultrasound shows 2-3 mL gallbladder polyp. No signs of cholecystitis. He is still clinically stable alkaline phosphatase and bilirubin levels are normal. (3) Multiple myeloma Current Visit: Yes Status: Acute Assessment and Plan: Patient is currently being treated for multiple myeloma and is being followed by [facility]. Recently completed a course of Chemotherapy outpatient. Plan: - continue to monitor CBC and CMP - Consider consulting Oncology team for further recs on treatment while inpatient. (4) CKD (chronic kidney disease), stage III Current Visit: Yes Status: Acute Assessment and Plan: Patient is a 78Yo male with PMH of CKD3 and DM2 who presents with possible BEVERLEY in the setting of possible pneumonia and CT findings of Mild gallbladder wall thickening and RUQ pain. avoid nephrotoxic medication strict I&O continue monitoring (5) Indigestion Current Visit: Yes Status: Acute Assessment and Plan: CTA chest also showes Patulous esophagus. plan PPI zofran PRN may need GI consultation - Time Spent with Patient Total time spent is greater than 50% in coordination of care (as documented) at patient's floor/unit and/or counseling patient: Internal Medicine: Result - Labs CBC & Chem 7: 01/31/19 14:44 01/31/19 14:44 Labs: Short CBC 01/30/19 Range/Units 18:02 WBC 3.5 L (4.3-11.1) K/mcL Hgb 9.4 L (12.9-16.9) g/dL Hct 28.8 L (37.5-50.1) % Plt Count 196 (140-400) K/mcL Neutrophils # 1.4 L (1.6-8.9) K/mcL BMP 01/30/19 18:02 Sodium 139 Potassium 4.5 Chloride 106 Carbon Dioxide 28 BUN 25 H Creatinine 2.03 H Glucose 105 Calcium 9.2 Cardiac Enzymes 01/30/19 01/31/19 Range/Units 18:02 03:27 Troponin I 0.07 H* 0.07 H* (< 0.04) ng/mL Liver Function 01/30/19 Range/Units 21:59 Total Bilirubin 0.5 (0.3-1.0) mg/dL Direct Bilirubin 0.1 (0.0-0.2) mg/dL AST 21 (13-39) Units/L ALT 19 (7-52) Units/L Alkaline Phosphatase 38 (34-104) Units/L Albumin 3.7 (3.5-5.7) g/dL - Impressions Impressions Chest X-Ray 01/30/19 19:11 IMPRESSION: Mild central vascular congestion. Patchy areas of atelectasis or pneumonia. Left basilar atelectasis or scarring. Bilateral calcified pleural plaques. D/ / 01/30/2019 19:16:44 Geovanni Davenport MD / oniel Interpreting Provider: Geovanni Davenport MD Abdomen/Pelvis CT 01/30/19 21:18 IMPRESSION: Moderate retained stool throughout the colon without bowel obstruction. Mild gallbladder wall thickening and suspected minimal pericholecystic fluid. Please correlate with LFTs. Mild wall thickening of the urinary bladder may related to underdistention. Please correlate with urinalysis findings. D/ / Bang Goel / Bang Goel Interpreting Provider: Bang Goel Lumbar Spine CT 01/30/19 21:20 IMPRESSION: Multilevel degenerative disc and facet disease, greatest L3-L4, where there is severe central canal stenosis. No acute fracture or traumatic malalignment. D/ / Min Hansen MD / Min Hansen MD Interpreting Provider: Min Hansen MD Chest CTA 01/30/19 21:24 IMPRESSION: Suboptimal pulmonary arterial contrast bolus, limiting evaluation of the segmental and subsegmental pulmonary arterial branches. No central pulmonary embolism is detected. Collapse and consolidation within the left lower lobe, some combination of atelectasis, pneumonia, and aspiration. Patulous esophagus. Correlate with any clinical evidence of dysphagia. D/ / Min Hansen MD / Min Hansen MD Interpreting Provider: Min Hansen MD <Lesli Roman I - Last Filed: 01/31/19 17:29> (1) Community acquired pneumonia Qualifiers: Laterality: left Lung location: lower lobe of lung Qualified Code(s): J18.1 - Lobar pneumonia, unspecified organism (3) Multiple myeloma Qualifiers: Multiple myeloma remission status: not in remission Qualified Code(s): C90.00 - Multiple myeloma not having achieved remission
--- NOTE | 2019-01-31 11:05 | Pulmonology Consult Note ---
<Willian Snider W - Last Filed: 01/31/19 15:39> Date of Encounter: 01/31/19 Medications and Allergies Albuterol Sulfate [Proair Hfa] 2 puff IH Q6HR PRN 08/08/18 [History] Aspirin [Lo-Dose Aspirin EC] 81 mg PO DAILY 08/08/18 [History] Cholecalciferol (Vitamin D3) [Vitamin D] 5,000 unit PO DAILY 08/08/18 [History] Cyanocobalamin (Vitamin B-12) [Vitamin B-12] 2,500 mcg PO DAILY 08/08/18 [History] Finasteride [Proscar] 5 mg PO DAILY 08/08/18 [History] Gabapentin [Neurontin] 900 mg PO HS 08/08/18 [History] GlipiZIDE XL (24 HR) [Glucotrol XL] 2.5 mg PO 0800 08/08/18 [History] Losartan Potassium [Cozaar] 50 mg PO DAILY 08/08/18 [History] Montelukast [Singulair] 10 mg PO HS 08/08/18 [History] Multivit-Min/FA/Lycopen/Lutein [Centrum Silver Tablet] 500 mg PO DAILY 08/08/18 [History] [place]-3/Dha/Epa/Fish Oil [Fish Oil 1,000 mg Softgel] 1 cap PO DAILY 08/08/18 [History] Pioglitazone HCl [Actos] 45 mg PO DAILY 08/08/18 [History] Ranitidine HCl [Acid Quality Assurance Coach] 150 mg PO BID 08/08/18 [History] Simvastatin [Zocor] 40 mg PO HS 08/08/18 [History] Ondansetron HCl 4 mg PO Q8HR PRN #20 tablet 09/13/18 [Rx] Acyclovir [Zovirax] 400 mg PO BID 90 Days #180 tablet 11/21/18 [Rx] Fluticasone Propionate Nasal [Flonase] 1 spray NS DAILY PRN 11/29/18 [History] Oxycodone HCl/Acetaminophen [Percocet 10-325 mg Tablet] 1 each PO Q6HR PRN 12/27/18 [History] Lenalidomide [Revlimid] 10 mg PO DAILY 01/31/19 [History] Umeclidinium [place] [Incruse Ellipta] 1 puff IH DAILY 01/31/19 [History] Allergy/AdvReac Type Severity Reaction Status Date / Time No Known Allergies Allergy Verified 01/30/19 19:16 All Systems: The remainder of the systems were reviewed and are negative Physical Examination Vital Signs: Vital Signs, Last 4 Hours Temp Pulse Resp BP Pulse Ox 01/31/19 12:12 97.7 F 66 18 150/88 96 Results - Laboratory Findings CBC and BMP: 01/31/19 14:44 01/31/19 14:44 Abnormal lab findings: Abnormal lab results WBC 3.8 K/mcL (4.3-11.1) L 01/31/19 14:44 RBC 3.05 M/mcL (4.19-5.50) L 01/31/19 14:44 Hgb 9.9 g/dL (12.9-16.9) L 01/31/19 14:44 Hct 29.7 % (37.5-50.1) L 01/31/19 14:44 RDW 14.8 % (11.5-14.5) H 01/31/19 14:44 Neutrophils # 1.4 K/mcL (1.6-8.9) L 01/30/19 18:02 BUN 25 mg/dL (8-23) H 01/30/19 18:02 Creatinine 1.82 mg/dL (0.70-1.30) H 01/31/19 14:44 Est GFR ( Amer) 44 (> 60) L 01/31/19 14:44 Est GFR (Non-Af Amer) 36 (> 60) L 01/31/19 14:44 Glucose 130 mg/dL (70-105) H 01/31/19 14:44 Troponin I 0.06 ng/mL (< 0.04) H* 01/31/19 09:07 B-Natriuretic Peptide 211 pg/mL (Less than 100) H 01/30/19 18:02 Serum Total Protein 5.8 g/dL (6.4-8.9) L 01/30/19 21:59 Globulin 2.1 g/dL (2.4-3.5) L 01/30/19 21:59 - Microbiology Findings Microbiology Findings: Microbiology, Last 48 Hours 01/30/19 21:59 Blood Culture - Preliminary Peripheral Venipuncture Culture is incubating and being continuously monitored for growth. Final report to follow. - Clinical Findings Intake & Output: Intake & Output 01/30/19 01/31/19 01/31/19 23:59 07:59 15:59 Intake Total 1020 / 1020 0 / 0 Output Total 0 / 0 Balance 1020 / 1020 0 / 0 Weight 90.718 kg 89.3 kg Consult Discharge Plan - Plan Referrals: NONE,PCP [Primary Care Provider] - - Attending Attestation I examined this patient and my medical decision-making was reviewed with the Resident Physician. I agree with the documented findings, disposition and t reatment plan as described except to the extent set forth below. We independently had [id number] contact with the patient Patient seen and examined at bedside Labs, radiology, chart personally reviewed. 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 He presents with worsening shortness of breath which is complication of hydrostatic pulmonary edema likely from underlying renal failure complicated by increased diastolic filling pressures. Incidentally patient found to have left lower lobe atelectasis unclear to me the chronicity or etiology of this I am dubious is factoring in much to his current symptomatology but nevertheless I feel that bronchoscopy is warranted to rule out any endobronchial obstruction mucus plugging etc. Clinically patient does not appear to be infected and pro-calcitonin is normal Standpoint I do not think that antibiotics are actually necessary right now. He will benefit from cautious diuresis with this underlying renal dysfunction. A bronchoscopy is recommended. The procedure , risks, benefits, complications, and expected outcomes have been reviewed. Benefits of diagnosis, as well as risks to include bleeding, infection, pneumothorax which may require surgical intervention, and in a small population. The patient is aware that sometimes test is nondiagnostic. Discussed with patient and agrees to proceed. Please keep patient nothing by mouth at midnight <Casey Boland - Last Filed: 01/31/19 22:21> Date of Encounter: 01/31/19 Time of Encounter: 14:00 Assessment and Plan (1) Atelectasis of left lung Current Visit: Yes Status: Acute Patient presents with acute onset SOB Present x 3 days, both at rest and on exertion Also has evidence of fluid overload on exam CT shows evidence of hydrostatic pulmonary edema CT also shows pleural calcific changes and atelectasis of LLL These findings were present of CXR back in July however do appear to have somewhat progressed No evidence of obvious PNA; afebrile, procalcitonin normal, no sputum production, SpO2 stable RA, no fevers/chills Likely related to his underlying interstital lung dx and chornic bronchitis Plan: -REocmmend stopped ABX as likely is not Infectious in nature and VAncomycin particularly problematic with his BEVERLEY on CKD -Recommend Cautious diuresis as his does exhibit fluid overload and hydrostatic pulmonary edema 2/2 chronic kidney disease and his HFpEF -Plan for Bronch tomorrow, consent obtained, Risks/Benefits reviewed, NPO midnight, tentatively scheduled for 11:00am (2) Restrictive lung disease Current Visit: Yes Status: Acute Known history of Restrictive Lung Dx 2/2 Absestos exposure Lung volume on PFT roughly 56% predicted value FEV/FVC >1.0 Plan: -Bronch tomorrow to observe for endobronchial obstructions/mucous plugging (3) Chronic bronchitis with COPD (chronic obstructive pulmonary disease) Current Visit: Yes Status: Acute Patient has known history of chronic bronchitis follows with DR. Kline in the [facility] regularly Compliant with his home inhalers Remote history of Tobacco Abuse Not in acute exacerbation, no wheezing, SpO2 stable Plan: -Bronchoscopy tomorrow -Continue bronchodilators -Supplement O2 if needed to maintain above 88% (4) Heart failure with preserved ejection fraction Current Visit: Yes Status: Acute Patient has a known history of HFpEF Presents with acute onset SOB at rest and on exertion ECHO today redomonstrates pEF with LVDD BNP elevated on Admission +2 pretibial peripheral edema with evidence of hydrostatic pulmonary edema on CT Plan: Recommend cautious diuresis Fluid restriction to 2L Monitor I/O, check daily weights Qualifiers: Qualified Code(s): I50.30 - Unspecified diastolic (congestive) heart failure (5) CKD (chronic kidney disease), stage III Current Visit: Yes Status: Acute Known history of CKD stage [address] Newman SCr mildly elevated above baseline indicating BEVERLEY on CKD Patient was started on Vancomycin d/t concern of PNA Plan; -Recommend D/C Vancomycin as patient likely does not have PNA -Cautious Diuresis -Monitor SCr/GFR closely -Avoid nephrotoxins -STrict I/O History of Present Illness Consult date: 01/31/19 Reason for consult: abnormal CXR/CT History of present illness: Mr. 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 Patient presents to the hospital with worsening shortness of breath for several days, both on exertion and at rest. The patient is also suffering from pleuritic chest pain. Denies hemoptysis, fever, chills, sputum production, cough. His main other complaint at this time is RUQ pain and new onset peripheral edema. The patients vitals were WNL in the ED. His oxygen saturations were stable on RA. Labs revealed leukopenia, anemia, mild BEVERLEY on top of CKD, BNP was elevated and he did have slight elevation in troponins at 0.07 followed by 0.06. The patients Procalcitonin is normal. EKG was normal sinus rythym, no ischemic changes. CXR revealed mild central vascular congestion with patchy areas consistent with either atelectasis or PNA, and bilateral calcified pleural plaques. CT ABD showed mild gallbladder wall thickening. RUQ U/S was negative for acute cholecystitis. CTA was negative for PE but did reveal LLL atelectasis with evidence of pleural disease and a patulous esophagus. The patient was started on ABX and pulmonology was consulted for further recommendations regarding his CT findings and indications for possible bronchoscopy. Past Med Surg Social Fam HX - Past Medical History Medical history: COPD Psychiatric history: no psych history - Past Surgical History Surgical History: herniorrhaphy, orthopedic, other, other Additional surgical history: t&a, hernia repair, colonoscopy, CTR, skin lesion removed, hear cath. - Social History Smoking Status: Never smoker Smokeless Tobacco Status: No Alcohol use: none Drug use: none All Systems: The remainder of the systems were reviewed and are negative Physical Examination Vital Signs: Vital Signs, Last 4 Hours Temp Pulse Resp BP Pulse Ox 01/31/19 07:34 97.7 F 70 18 164/64 95 Gen: alert/orientedx3, no acute distress. Head: atraumatic, normocephalic. ENT: no oropharyngeal erythema, mucous membranes moist. Neck: No thyromegaly appreciated. Neck supple no cervical lymphadenopathy. Resp: CTAB, no wheezing, rhonchi, or rhales. Chest: anterior and lateral Ribs tender to palpation b/l. sternum tender to palpation at costocondral junctions of L ribs 5-7 CV: RRR, Normal S1 and S2. No murmur, gallops, or rubs. GI/Abdominal exam: bowel sounds throughout, obese soft, mildly tender to palpation on RUQ, negative urena sign, non-distended; no hepatosplenomegaly Skin: intact; no rashes, lesions, or bruising. Ext: No cyanosis but +2 pitting edema in LE b/l. pulses +2/4 bilaterally UE and LE. Neuro: no focal deficits, cooperative with exam. Results - Laboratory Findings CBC and BMP: 01/31/19 14:44 01/31/19 14:44 Abnormal lab findings: Abnormal lab results WBC 3.5 K/mcL (4.3-11.1) L 01/30/19 18:02 RBC 2.94 M/mcL (4.19-5.50) L 01/30/19 18:02 Hgb 9.4 g/dL (12.9-16.9) L 01/30/19 18:02 Hct 28.8 % (37.5-50.1) L 01/30/19 18:02 RDW 14.9 % (11.5-14.5) H 01/30/19 18:02 Neutrophils # 1.4 K/mcL (1.6-8.9) L 01/30/19 18:02 BUN 25 mg/dL (8-23) H 01/30/19 18:02 Creatinine 2.03 mg/dL (0.70-1.30) H 01/30/19 18:02 Est GFR ( Amer) 39 (> 60) L 01/30/19 18:02 Est GFR (Non-Af Amer) 32 (> 60) L 01/30/19 18:02 Troponin I 0.06 ng/mL (< 0.04) H* 01/31/19 09:07 B-Natriuretic Peptide 211 pg/mL (Less than 100) H 01/30/19 18:02 Serum Total Protein 5.8 g/dL (6.4-8.9) L 01/30/19 21:59 Globulin 2.1 g/dL (2.4-3.5) L 01/30/19 21:59 - Clinical Findings Intake & Output: Intake & Output 01/30/19 01/31/19 01/31/19 23:59 07:59 15:59 Intake Total 1020 / 1020 0 / 0 Output Total 0 / 0 Balance 1020 / 1020 0 / 0 Weight 90.718 kg 89.3 kg
[2019-01-31] MEDS: *HR* OxyCODONE/APAP 10/325 TABLET PO PRN ×2 (12:45→20:49)
[2019-01-31] MEDS ORDERED: Aminoglycoside Consult 1 EACH MC ONE (14:23)
[2019-01-31 14:58] LABS: Basophils % 1.1 %; Eosinophils # 0.1 K/mcL (0.0-0.6); Eosinophils % 3.2 %; Hematocrit 29.7 % (37.5-50.1); Hemoglobin 9.9 g/dL (12.9-16.9); Immature Granulocytes % 0.3 % (0-4); Lymphocytes # 0.8 K/mcL (0.6-4.6); Lymphocytes % 22.2 %; Mean Corpuscular HGB Conc 33.3 g/dL (31.6-35.5); Mean Corpuscular Hemoglobin 32.5 pg (28.0-33.3); Mean Corpuscular Volume 97.4 fL (83.0-100.0); Mean Platelet Volume 10.3 fL (9.4-12.4); Monocytes # 0.8 K/mcL (0.0-1.3); Monocytes % 19.8 %; Platelet Count 218 K/mcL (140-400); Red Blood Count 3.05 M/mcL (4.19-5.50); Red Cell Distribution Width 14.8 % (11.5-14.5); Segmented Neutrophils % 53.4 %; White Blood Count 3.8 K/mcL (4.3-11.1)
[2019-01-31 15:16] LABS: Calcium 9.1 mg/dL (8.6-10.3); Potassium 4.2 mEq/L (3.5-5.1)
[2019-01-31] MEDS: Piperacillin/Tazobactam 3.375 GM in 0.9 % Sodium Chloride Mini Bag 100 ML IVPB SCH (16:28)
[2019-01-31 17:11] LABS: Platelet Estimate Normal (Normal)
--- NOTE | 2019-01-31 17:35 | Electrocardiograph Report ---
[place] [id number] Test Date: 2019-01-30 Pat Name: Fabian Moyer Department: [id number] Room: 2A14 Gender: Flag Football Coach: : 1940 Requested By: Bladimir Salazar Order Number: [id number] Reading MD: Jayme Lazar Measurements Intervals [place] Rate: 68 P: 54 AL: 142 QRS: 34 QRSD: 106 T: 72 QT: 405 QTc: 431 Interpretive Statements Sinus rhythm Abnormal R-wave progression, early transition Electronically Signed On 01-31-2019 17:34:22 EDT by Jayme Lazar
[2019-01-31] MEDS: Pantoprazole 40 MG VIAL IVP SCH (17:39)
--- NOTE | 2019-01-31 17:49 | Electrocardiograph Report ---
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
[2019-01-31] MEDS: Fluticasone Propionate Nasal 50 MCG/SPRAY BOTTLE NS SCH (18:23)
[2019-01-31] MEDS: Famotidine 20 MG TABLET PO SCH (18:24)
[2019-01-31] MEDS: Gabapentin 400 MG CAPSULE PO SCH (20:19)
[2019-01-31] MEDS ORDERED: Insulin DETEMIR 100 UNIT/ML X5UNITS SQ SCH (21:00)
[2019-02-01] MEDS: Piperacillin/Tazobactam 3.375 GM in 0.9 % Sodium Chloride Mini Bag 100 ML IVPB SCH ×2 (00:30→08:22)
[2019-02-01] MEDS: Insulin LISPRO 300 UNITS/3 ML VIAL SQ SCH ×4 (00:33→16:07)
[2019-02-01 05:02] LABS: Basophils % 0.8 %; Eosinophils # 0.2 K/mcL (0.0-0.6); Eosinophils % 4.3 %; Hematocrit 29.9 % (37.5-50.1); Hemoglobin 9.8 g/dL (12.9-16.9); Immature Granulocytes % 0.2 % (0-4); Lymphocytes # 1.2 K/mcL (0.6-4.6); Lymphocytes % 23.7 %; Mean Corpuscular HGB Conc 32.8 g/dL (31.6-35.5); Mean Corpuscular Hemoglobin 31.8 pg (28.0-33.3); Mean Corpuscular Volume 97.1 fL (83.0-100.0); Mean Platelet Volume 10.4 fL (9.4-12.4); Monocytes % 20.2 %; Neutrophils # 2.5 K/mcL (1.6-8.9); Platelet Count 262 K/mcL (140-400); Red Blood Count 3.08 M/mcL (4.19-5.50); Red Cell Distribution Width 14.9 % (11.5-14.5); Segmented Neutrophils % 50.8 %; White Blood Count 4.9 K/mcL (4.3-11.1)
[2019-02-01 05:21] LABS: Calcium 8.8 mg/dL (8.6-10.3)
[2019-02-01 05:28] LABS: Platelet Estimate Normal (Normal)
[2019-02-01] MEDS: Cyanocobalamin (B-12) 1,000 MCG TABLET PO SCH (08:22)
[2019-02-01] MEDS: Finasteride 5 MG TABLET PO SCH (08:22)
[2019-02-01] MEDS: Famotidine 20 MG TABLET PO SCH (08:23)
[2019-02-01] MEDS: Cholecalciferol (D-3) 1,000 UNIT (25MCG) TABLET PO SCH (08:23)
[2019-02-01] MEDS: Aspirin Enteric Coated 81 MG Tablet PO SCH (08:23)
[2019-02-01] MEDS: Multivit/Ca/Min/Fe/FA 1 TAB TABLET PO SCH (08:23)
[2019-02-01] MEDS: Pantoprazole 40 MG VIAL IVP SCH (08:23)
[2019-02-01] MEDS: Fluticasone Propionate Nasal 50 MCG/SPRAY BOTTLE NS SCH (08:23)
[2019-02-01] MEDS: *HR* OxyCODONE/APAP 10/325 TABLET PO PRN ×2 (08:29→16:13)
--- NOTE | 2019-02-01 08:38 | Internal Med Progress Note ---
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) Current Visit: Yes Status: Chronic (4) Community acquired pneumonia Current Visit: Yes Status: Ruled-out (5) DVT prophylaxis Current Visit: Yes Status: Chronic (6) Heart failure with preserved ejection fraction Current Visit: Yes Status: Acute (7) Type 2 diabetes mellitus Current Visit: Yes Status: Acute (8) Anemia Current Visit: Yes Status: Acute (9) Elevated troponin Current Visit: Yes Status: Acute - Time Spent with Patient Total time spent is greater than 50% in coordination of care (as documented) at patient's floor/unit and/or counseling patient: Internal Medicine: Result - Labs CBC & Chem 7: 02/01/19 04:18 02/01/19 04:18 Labs: Short CBC 01/31/19 02/01/19 Range/Units 14:44 04:18 WBC 3.8 L 4.9 (4.3-11.1) K/mcL Hgb 9.9 L 9.8 L (12.9-16.9) g/dL Hct 29.7 L 29.9 L (37.5-50.1) % Plt Count 218 262 (140-400) K/mcL Neutrophils # 2.0 2.5 (1.6-8.9) K/mcL BMP 01/31/19 02/01/19 14:44 04:18 Sodium 137 139 Potassium 4.2 4.0 Chloride 105 108 H Carbon Dioxide 26 22 L BUN 21 16 Creatinine 1.82 H 1.66 H Glucose 130 H 87 Calcium 9.1 8.8 Cardiac Enzymes 02/01/19 Range/Units 04:18 Troponin I 0.05 H* (< 0.04) ng/mL Consult Discharge Plan - Plan Referrals: Myrna Prieto MD [Partnered Physician] - 02/08/19 11:15 am (Please follow up as schedule..) NONE,PCP [Primary Care Provider] - - Attending Attestation I saw evaluated and examined this patient and reviewed objective data including labs and my medical decision-making was reviewed with the Resident Physician, Lesli Roman. I agree with the documented findings, disposition and treatment plan as described except to any changes set forth below. We independently had [id number] contact with the patient. Patient doing better. Denies any chest pain at this time but gets occasional lateral chest pain and in his ribs with deep breaths. No fevers or chills reported overnight. Having good urinary output. Underwent bronchoscopy today and was found to have a friable mucosa in the left lower lobe and atelectasis of the left lower lobe. Otherwise rest of the airway examination was normal. Pro calcitonin levels are also normal. Per pulmonology recommendations, no indication for antibiotics. We will stop antibiotics at this time. Hemoglobin levels remained stable. Renal function at baseline. We will start patient on regular diet after his bronchoscopy. Assess how he tolerates this. If he has any nausea or vomiting or symptoms of esophageal dysmotility, will consult GI or acute care surgery for further evaluation. <Lesli Roman I - Last Filed: 02/01/19 15:29> Hospitalist Progress Note - Encounter Date of Encounter: 02/01/19 - Subjective Interval History: Patient is seen and examined at bedside today .Patient doing better. Denies any chest pain at this time but gets occasional lateral chest pain and in his ribs with deep breaths. No fevers or chills reported overnight. Having good urinary output. will undergo bronchoscopy today - Exam Vitals: Temp Pulse Resp BP Pulse Ox 98.3 F 77 18 151/61 96 02/01/19 07:56 02/01/19 07:56 02/01/19 07:56 02/01/19 07:56 02/01/19 07:56 Exam: Gen: alert/orientedx3, no acute distress. Head: atraumatic, normocephalic. ENT: no oropharyngeal erythema, mucous membranes moist. Neck: No thyromegaly appreciated. Neck supple no cervical lymphadenopathy. Resp: CTAB, no wheezing, rhonchi, or rhales. Chest: anterior and lateral Ribs tender to palpation b/l. sternum tender to palpation at costocondral junctions of L ribs 5-7 CV: RRR, Normal S1 and S2. No murmur, gallops, or rubs. GI/Abdominal exam: bowel sounds throughout, obese soft, mildly tender to palpation on RUQ, negative urena sign, non-distended; no hepatosplenomegaly Skin: intact; no rashes, lesions, or bruising. Ext: No cyanosis but +2 pitting edema in LE b/l. pulses +2/4 bilaterally UE and LE. Neuro: no focal deficits, cooperative with exam. - Assessment and Plan (1) Atelectasis of left lung Current Visit: Yes Status: Acute Assessment and Plan: Patient presents with acute onset SOB Present x 3 days, both at rest and on exertion Also has evidence of fluid overload on exam CT shows evidence of hydrostatic pulmonary edema CT also shows pleural calcific changes and atelectasis of LLL These findings were present of CXR back in July however do appear to have somewhat progressed No evidence of obvious PNA; afebrile, procalcitonin normal, no sputum p roduction, SpO2 stable RA, no fevers/chills Likely related to his underlying interstital lung dx and chornic bronchitis Plan: -we stopped antibiotics -one dose of aiv LASIX 20 mg -bronchoscopy today which showes to have a friable mucosa in the left lower lobe and atelectasis of the left lower lobe. Otherwise rest of the airway examination was normal. Pro calcitonin levels are also normal. Per pulmonology recommendations, no indication for antibiotics. We will stop antibiotics at this time. Hemoglobin levels remained stable. Renal function at baseline. (2) RUQ abdominal pain Current Visit: Yes Status: Acute Assessment and Plan: Gallbladder ultrasound shows 2-3 mL gallbladder polyp. No signs of cholecystitis. He is still clinically stable alkaline phosphatase and bilirubin levels are normal. (3) Indigestion Current Visit: Yes Status: Acute Assessment and Plan: patient has symptoms of indegestion and recurrent burping CTA chest also showes Patulous esophagus. plan PPI zofran PRN We will start patient on regular diet after his bronchoscopy. Assess how he tolerates this. If he has any nausea or vomiting or symptoms of esophageal dysmotility, will consult GI or acute care surgery for further evaluation. (4) Multiple myeloma Current Visit: Yes Status: Acute Assessment and Plan: Patient is currently being treated for multiple myeloma and is being followed by [facility]. Recently completed a course of Chemotherapy outpatient. Plan: - continue to monitor CBC and CMP - Consider consulting Oncology team for further recs on treatment while inpatient. (5) CKD (chronic kidney disease), stage III Current Visit: Yes Status: Chronic Assessment and Plan: Known history of CKD stage [address] Newman SCr mildly elevated above baseline indicating BEVERLEY on CKD Plan; -Cautious Diuresis -Monitor SCr/GFR closely -Avoid nephrotoxins -STrict I/O (6) COPD (chronic obstructive pulmonary disease) Current Visit: Yes Status: Acute Assessment and Plan: Patient has known history of COPD Compliant with his home inhalers Remote history of Tobacco Abuse Not in acute exacerbation, no wheezing, SpO2 stable Plan: -Continue bronchodilators -Supplement O2 if needed to maintain above 88% - Time Spent with Patient Total time spent is greater than 50% in coordination of care (as documented) at patient's floor/unit and/or counseling patient: Internal Medicine: Result - Labs CBC & Chem 7: 02/01/19 04:18 02/01/19 04:18 Labs: Short CBC 01/31/19 02/01/19 Range/Units 14:44 04:18 WBC 3.8 L 4.9 (4.3-11.1) K/mcL Hgb 9.9 L 9.8 L (12.9-16.9) g/dL Hct 29.7 L 29.9 L (37.5-50.1) % Plt Count 218 262 (140-400) K/mcL Neutrophils # 2.0 2.5 (1.6-8.9) K/mcL BMP 01/31/19 02/01/19 14:44 04:18 Sodium 137 139 Potassium 4.2 4.0 Chloride 105 108 H Carbon Dioxide 26 22 L BUN 21 16 Creatinine 1.82 H 1.66 H Glucose 130 H 87 Calcium 9.1 8.8 Cardiac Enzymes 01/31/19 02/01/19 Range/Units 09:07 04:18 Troponin I 0.06 H* 0.05 H* (< 0.04) ng/mL - Impressions Impressions Chest X-Ray 01/30/19 19:11 IMPRESSION: Mild central vascular congestion. Patchy areas of atelectasis or pneumonia. Left basilar atelectasis or scarring. Bilateral calcified pleural plaques. D/ / 01/30/2019 19:16:44 Geovanni Davenport MD / oniel Interpreting Provider: Geovanni Davenport MD Gallbladder Ultrasound 01/31/19 10:12 IMPRESSION: 2-3 mm gallbladder polyp. No additional follow-up is warranted. 9 mm simple right renal cyst. D/ / 01/31/2019 10:52:37 Carlos Pablo MD / Makayla Baldwin Interpreting Provider: Carlos Pablo MD Echocardiogram 01/31/19 10:19 Impressions: LVEF 60-65%. Mild left ventricular diastolic dysfunction. Mild pulmonary hypertension. No significant valvular dysfunction. Left Ventricular Wall Motion: Rest Echo Findings All wall segments showed normal motion. Findings: Study Quality * Technically adequate exam. Right Ventricle * Normal right ventricular structure and function. Aortic Valve * Trileaflet aortic valve with normal function. Interatrial Septum * No evidence of PFO by color Doppler. Aorta * Normally sized aortic root. Pericardium * The pericardium appears normal. Left Ventricle * LVEF 60-65%. * Mild left ventricular diastolic dysfunction. Mitral Valve * Normal mitral valve structure. * No mitral stenosis. * Trace mitral regurgitation. Tricuspid Valve * Trace tricuspid regurgitation. * No tricuspid stenosis. * Estimated RVSP is 36 mmHg. * Estimated RA pressure is 5-10 mmHg. * Mild pulmonary hypertension. Pulmonic Valve * No pulmonic stenosis. * No pulmonic regurgitation. Left Atrium * Mildly dilated left atrium. Right Atrium * Moderately dilated right atrium. IVC * The IVC is dilated. * > 50% respiratory change <Alex Moses - Last Filed: 02/01/19 12:33> (4) Community acquired pneumonia Qualifiers: Laterality: left Lung location: lower lobe of lung Qualified Code(s): J18.1 - Lobar pneumonia, unspecified organism (6) Heart failure with preserved ejection fraction Qualifiers: Heart failure chronicity: chronic Qualified Code(s): I50.32 - Chronic diastolic (congestive) heart failure (7) Type 2 diabetes mellitus Qualifiers: Diabetes mellitus chcf insulin use: without termite inspector use Diabetes mellitus complication status: with kidney complications Diabetes mellitus complication detail: with chronic kidney disease Chronic kidney disease stage: stage 3 (moderate) Qualified Code(s): E11.22 - Type 2 diabetes mellitus with diabetic chronic kidney disease; N18.3 - Chronic kidney disease, stage 3 (moderate) (8) Anemia Qualifiers: Anemia type: due to chronic kidney disease Chronic kidney disease stage: stage 3 (moderate) Qualified Code(s): N18.3 - Chronic kidney disease, stage 3 (moderate); D63.1 - Anemia in chronic kidney disease <Lesli Roman I - Last Filed: 02/01/19 15:29> (4) Multiple myeloma Qualifiers: Multiple myeloma remission status: not in remission Qualified Code(s): C90.00 - Multiple myeloma not having achieved remission
[2019-02-01] MEDS ORDERED: NON-FORMULARY MEDICATION 1 EACH EACH (Omega-3/Dha/Epa/Fish Oil [Fish Oil 1,000 Mg Softgel] PO SCH (09:00)
[2019-02-01] MEDS ORDERED: Tetracaine/Benzocaine/Butamben 1 SPRAY AEROSOL MM ONE (09:05)
[2019-02-01] MEDS ORDERED: *HR* Midazolam HCl 5 MG/5 ML VIAL IVP ONE ×2 (09:05→10:29)
[2019-02-01] MEDS ORDERED: *HR* FentaNYL (PF) 100 MCG/2 ML VIAL IVP ONE (09:05)
--- NOTE | 2019-02-01 09:05 | Pre-Sedation Evaluation ---
Pre-sedation evaluation - Pre-sedation checklist Date of procedure: 02/01/19 Procedure: bronchoscopy Recent Vitals: Last Vital Signs Temp 98.3 F 02/01/19 07:56 Pulse 77 02/01/19 07:56 Resp 18 02/01/19 07:56 BP 151/61 02/01/19 07:56 Pulse Ox 96 02/01/19 07:56 H&P (including ROS) documented in medical record: Yes Previous reaction to sedatives/anesthetics: Unknown Dietary Status: NPO after Midnight Dentition: full dentition Possible difficult airway: No ASA Classification *see protocol: CLASS III-Severe systemic disease Plan of Care: Pt appropriate candidate for procedure/moderate/conscious sedation, Risks/benefits of procedure/sedation discussed w/ patient/family
[2019-02-01] MEDS ORDERED: Ringers Solution, Lactated 1,000 ML IVC SCH (09:15)
[2019-02-01] MEDS ORDERED: *HR* FentaNYL (PF) 100 MCG/2 ML VIAL ONE (10:30)
[2019-02-01] MEDS ORDERED: Acetaminophen 325 MG TABLET PO PRN (11:07)
[2019-02-01] MEDS: 0.9 % Sodium Chloride 1,000 ML IVC SCH (11:47)
[2019-02-01] MEDS: Ondansetron ODT 4 MG TAB.RAPDIS SL PRN ×2 (14:44→18:46)
[2019-02-01] MEDS ORDERED: Furosemide 20 MG/2 ML VIAL IVP ONE (15:23)
[2019-02-01] MEDS: Gabapentin 400 MG CAPSULE PO SCH (20:37)
[2019-02-01] MEDS ORDERED: Insulin LISPRO 300 UNITS/3 ML VIAL SQ SCH (21:00)
[2019-02-02] MEDS: *HR* OxyCODONE/APAP 10/325 TABLET PO PRN ×2 (00:08→08:30)
[2019-02-02 01:09] LABS: Appearance of Body Fluid Clear (Clear); Volume of Body Fluid 9 mL
[2019-02-02 04:17] LABS: Basophils # 0.1 K/mcL (0.0-0.2); Basophils % 0.8 %; Eosinophils # 0.3 K/mcL (0.0-0.6); Eosinophils % 4.7 %; Hematocrit 30.1 % (37.5-50.1); Hemoglobin 9.7 g/dL (12.9-16.9); Immature Granulocytes % 0.4 % (0-4); Lymphocytes # 1.3 K/mcL (0.6-4.6); Lymphocytes % 18.3 %; Mean Corpuscular HGB Conc 32.2 g/dL (31.6-35.5); Mean Corpuscular Hemoglobin 31.7 pg (28.0-33.3); Mean Corpuscular Volume 98.4 fL (83.0-100.0); Mean Platelet Volume 10.1 fL (9.4-12.4); Monocytes # 1.1 K/mcL (0.0-1.3); Monocytes % 15.1 %; Neutrophils # 4.4 K/mcL (1.6-8.9); Platelet Count 274 K/mcL (140-400); Red Blood Count 3.06 M/mcL (4.19-5.50); Red Cell Distribution Width 14.9 % (11.5-14.5); Segmented Neutrophils % 60.7 %; White Blood Count 7.2 K/mcL (4.3-11.1)
[2019-02-02 04:37] LABS: Calcium 8.5 mg/dL (8.6-10.3); Potassium 3.9 mEq/L (3.5-5.1)
--- NOTE | 2019-02-02 06:35 | Pulmonology Progress Note ---
Date of Encounter: 02/02/19 Time of Encounter: 06:34 Assessment and Plan (1) Atelectasis of left lung Current Visit: Yes Status: Acute Bronchoscopy without any evidence of mucous plug or endobronchial lesion. There is no clear evidence of pneumonia at this time will follow up culture and cytology however. Patient will benefit from continued diuresis as hydrostatic pulmonary edema is likely the reason that he is short of breath. Follow-up outpatient with pulmonary and 1-2 weeks of the time of discharge Pulmonary will sign off thank you for the consultation call with any questions (2) Chronic bronchitis Current Visit: Yes Status: Acute Qualifiers: Chronic bronchitis type: simple Qualified Code(s): J41.0 - Simple chronic bronchitis (3) Former smoker Current Visit: Yes Status: Acute (4) Restrictive lung disease Current Visit: Yes Status: Acute (5) Heart failure with preserved ejection fraction Current Visit: Yes Status: Acute Qualifiers: Heart failure chronicity: chronic Qualified Code(s): I50.32 - Chronic diastolic (congestive) heart failure Subjective Principal diagnosis: Dyspnea Interval history: Patient feels somewhat better. He denies any untoward effects status post b ronchoscopy Objective PUL Vital signs: Last Vital Signs Temp 98.3 F 02/02/19 03:48 Pulse 77 02/02/19 03:48 Resp 18 02/02/19 03:48 BP 134/75 02/02/19 03:48 Pulse Ox 95 02/02/19 03:48 General appearance: no acute distress, appears uncomfortable Effort: normal Auscultation: bilateral: rales (In lung bases) Cardiovascular: regular rate and rhythm Gastrointestinal: normoactive bowel sounds, hypoactive bowel sounds, non-tender Integumentary: normal Extremities: edema (Bilateral pitting edema noted) Musculoskeletal: no deformities normal mental status, non-focal exam Results - Laboratory Findings CBC and BMP: 02/02/19 03:44 02/02/19 03:44 Abnormal lab findings: Abnormal lab results WBC 3.8 K/mcL (4.3-11.1) L 01/31/19 14:44 RBC 3.06 M/mcL (4.19-5.50) L 02/02/19 03:44 Hgb 9.7 g/dL (12.9-16.9) L 02/02/19 03:44 Hct 30.1 % (37.5-50.1) L 02/02/19 03:44 RDW 14.9 % (11.5-14.5) H 02/02/19 03:44 Neutrophils # 1.4 K/mcL (1.6-8.9) L 01/30/19 18:02 Chloride 108 mEq/L (98-107) H 02/01/19 04:18 Carbon Dioxide 22 mEq/L (23-29) L 02/01/19 04:18 BUN 25 mg/dL (8-23) H 01/30/19 18:02 Creatinine 1.67 mg/dL (0.70-1.30) H 02/02/19 03:44 Est GFR ( Amer) 48 (> 60) L 02/02/19 03:44 Est GFR (Non-Af Amer) 40 (> 60) L 02/02/19 03:44 Glucose 130 mg/dL (70-105) H 01/31/19 14:44 POC Glucose 119 mg/dL (70-99) H 02/01/19 19:27 Calcium 8.5 mg/dL (8.6-10.3) L 02/02/19 03:44 Troponin I 0.05 ng/mL (< 0.04) H* 02/01/19 04:18 B-Natriuretic Peptide 211 pg/mL (Less than 100) H 01/30/19 18:02 Serum Total Protein 5.8 g/dL (6.4-8.9) L 01/30/19 21:59 Globulin 2.1 g/dL (2.4-3.5) L 01/30/19 21:59 - Microbiology Findings Microbiology Findings: Microbiology, Last 48 Hours 02/01/19 11:09 Respiratory Culture - Preliminary Left Lower Lobe Lung 01/30/19 21:57 Blood Culture - Preliminary Peripheral Venipuncture Culture is incubating and being continuously monitored for growth. Final report to follow. 01/30/19 21:59 Blood Culture - Preliminary Peripheral Venipuncture Culture is incubating and being continuously monitored for growth. Final report to follow. - Clinical Findings Intake & Output: Intake & Output 02/01/19 02/01/19 02/02/19 15:59 23:59 07:59 Intake Total 100 / 300 200 / 300 Output Total 875 / 1825 Balance -775 / -1525 200 / -1525 Consult Discharge Plan - Plan Referrals: Boy Ring MD [Partnered Physician] - (Web Requested 02/01/2019) Myrna Prieto MD [Partnered Physician] - 02/08/19 11:15 am (Please follow up as schedule..) Willian Snider MD [Partnered Physician] - (2 weeks) NONE,PCP [Primary Care Provider] - Prescriptions: Dexlansoprazole [Dexilant] 30 mg PO BID 30 Days #60 cap. Transmission Status: Received by [facility]/pharmacy #[id number]
[2019-02-02] MEDS: Insulin LISPRO 300 UNITS/3 ML VIAL SQ SCH ×2 (08:04→11:45)
[2019-02-02] MEDS: Cholecalciferol (D-3) 1,000 UNIT (25MCG) TABLET PO SCH (08:28)
[2019-02-02] MEDS: Multivit/Ca/Min/Fe/FA 1 TAB TABLET PO SCH (08:28)
[2019-02-02] MEDS: Finasteride 5 MG TABLET PO SCH (08:28)
[2019-02-02] MEDS: Pantoprazole 40 MG VIAL IVP SCH (08:28)
[2019-02-02] MEDS: Fluticasone Propionate Nasal 50 MCG/SPRAY BOTTLE NS SCH (08:28)
[2019-02-02] MEDS: Cyanocobalamin (B-12) 1,000 MCG TABLET PO SCH (08:29)
[2019-02-02] MEDS: Aspirin Enteric Coated 81 MG Tablet PO SCH (08:29)
--- NOTE | 2019-02-02 09:13 | Discharge Summary ---
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) Status: Chronic (4) Heart failure with preserved ejection fraction Status: Acute Qualifiers: Heart failure chronicity: chronic Qualified Code(s): I50.32 - Chronic diastolic (congestive) heart failure (5) Type 2 diabetes mellitus Status: Acute Qualifiers: Diabetes mellitus exterminator insulin use: without penitentiary use Diabetes mellitus complication status: with kidney complications Diabetes mellitus complication detail: with chronic kidney disease Chronic kidney disease stage: stage 3 (moderate) Qualified Code(s): E11.22 - Type 2 diabetes mellitus with diabetic chronic kidney disease; N18.3 - Chronic kidney disease, stage 3 (moderate) (6) Anemia Status: Acute Qualifiers: Anemia type: due to chronic kidney disease Chronic kidney disease stage: stage 3 (moderate) Qualified Code(s): N18.3 - Chronic kidney disease, stage 3 (moderate); D63.1 - Anemia in chronic kidney disease (7) Elevated troponin Status: Acute Hospital course: Mr. Moyer is a 78 year old male - Time Spent with Patient Total time spent providing and/or coordinating discharge services: - Discharge Medications Prescriptions: New Dexlansoprazole [Dexilant] 30 mg PO BID 30 Days #60 cap.bp Cyclobenzaprine [Flexeril] 10 mg PO HS PRN 30 Days #30 tablet PRN Reason: Pain Furosemide [Lasix] 20 mg PO DAILY 5 Days #5 tablet Continued [place]-3/Dha/Epa/Fish Oil [Fish Oil 1,000 mg Softgel] 1 cap PO DAILY Finasteride [Proscar] 5 mg PO DAILY Pioglitazone HCl [Actos] 45 mg PO DAILY Ranitidine HCl [Acid Home Health Clinical Liaison] 150 mg PO BID Albuterol Sulfate [Proair Hfa] 2 puff IH Q6HR PRN PRN Reason: Shortness Of Breath Simvastatin [Zocor] 40 mg PO HS Cyanocobalamin (Vitamin B-12) [Vitamin B-12] 2,500 mcg PO DAILY Cholecalciferol (Vitamin D3) [Vitamin D3] 5,000 unit PO DAILY Losartan Potassium [Cozaar] 50 mg PO DAILY GlipiZIDE XL (24 HR) [Glucotrol XL] 2.5 mg PO 0800 Montelukast [Singulair] 10 mg PO HS Aspirin [Lo-Dose Aspirin EC] 81 mg PO DAILY Multivit-Min/FA/Lycopen/Lutein [Centrum Silver Tablet] 500 mg PO DAILY Ondansetron HCl 4 mg PO Q8HR PRN #20 tablet PRN Reason: Nausea Acyclovir [Zovirax] 400 mg PO BID 90 Days #180 tablet Fluticasone Propionate Nasal [Flonase] 1 spray NS DAILY PRN PRN Reason: Allergy Symptoms Oxycodone HCl/Acetaminophen [Percocet 10-325 mg Tablet] 1 each PO Q6HR PRN PRN Reason: Pain Umeclidinium [place] [Incruse Ellipta] 1 puff IH DAILY Lenalidomide [Revlimid] 10 mg PO DAILY Changed Gabapentin [Neurontin] 400 mg PO HS #0 Home Medications: Albuterol Sulfate [Proair Hfa] 2 puff IH Q6HR PRN 08/08/18 [History] Aspirin [Lo-Dose Aspirin EC] 81 mg PO DAILY 08/08/18 [History] Cholecalciferol (Vitamin D3) [Vitamin D3] 5,000 unit PO DAILY 08/08/18 [History] Cyanocobalamin (Vitamin B-12) [Vitamin B-12] 2,500 mcg PO DAILY 08/08/18 [History] Finasteride [Proscar] 5 mg PO DAILY 08/08/18 [History] GlipiZIDE XL (24 HR) [Glucotrol XL] 2.5 mg PO 0800 08/08/18 [History] Losartan Potassium [Cozaar] 50 mg PO DAILY 08/08/18 [History] Montelukast [Singulair] 10 mg PO HS 08/08/18 [History] Multivit-Min/FA/Lycopen/Lutein [Centrum Silver Tablet] 500 mg PO DAILY 08/08/18 [History] [place]-3/Dha/Epa/Fish Oil [Fish Oil 1,000 mg Softgel] 1 cap PO DAILY 08/08/18 [History] Pioglitazone HCl [Actos] 45 mg PO DAILY 08/08/18 [History] Ranitidine HCl [Acid Home Health Clinical Liaison] 150 mg PO BID 08/08/18 [History] Simvastatin [Zocor] 40 mg PO HS 08/08/18 [History] Ondansetron HCl 4 mg PO Q8HR PRN #20 tablet 09/13/18 [Rx] Acyclovir [Zovirax] 400 mg PO BID 90 Days #180 tablet 11/21/18 [Rx] Fluticasone Propionate Nasal [Flonase] 1 spray NS DAILY PRN 11/29/18 [History] Oxycodone HCl/Acetaminophen [Percocet 10-325 mg Tablet] 1 each PO Q6HR PRN 12/27/18 [History] Lenalidomide [Revlimid] 10 mg PO DAILY 01/31/19 [History] Umeclidinium [place] [Incruse Ellipta] 1 puff IH DAILY 01/31/19 [History] Cyclobenzaprine [Flexeril] 10 mg PO HS PRN 30 Days #30 tablet 02/02/19 [Rx] Dexlansoprazole [Dexilant] 30 mg PO BID 30 Days #60 cap.bp 02/02/19 [Rx] Furosemide [Lasix] 20 mg PO DAILY 5 Days #5 tablet 02/02/19 [Rx] Gabapentin [Neurontin] 400 mg PO HS #0 02/02/19 [Rx] Allergies/Adverse Reactions: Allergy/AdvReac Type Severity Reaction Status Date / Time No Known Allergies Allergy Verified 01/30/19 19:16 Date of admission: 01/30/19 23:15 Primary care physician: PCP NONE Consults: 01/31/19 00:07 Consult to Nutrition [CONS] Routine Comment: Consulting Provider: NUTRITION Reason for Dietary Consult: PO Supplementation Other:: poor appetite 01/31/19 08:23 Consult to Pulmonology [CONS] Routine Consulting Provider: [facility] [place] Reason for Consult: chest pain , might need bronchoscopy Call Completed: No - Constitutional Vitals: Temp Pulse Resp BP Pulse Ox 98.1 F 71 17 153/73 96 02/02/19 06:50 02/02/19 06:50 02/02/19 06:50 02/02/19 06:50 02/02/19 06:50 - Patient Status Disposition: Home, Self-Care Condition: Good - Discharge Instructions Instructions: Furosemide (By mouth), Cyclobenzaprine (By mouth), Dexlansoprazole (By mouth) Follow Up With: Boy Ring MD [Partnered Physician] - (Web Requested 02/01/2019) Myrna Prieto MD [Partnered Physician] - 02/08/19 11:15 am (Please follow up as schedule..) Willian Snider MD [Partnered Physician] - (2 weeks) NONE,PCP [Primary Care Provider] - - Attending Attestation I saw evaluated and examined this patient and reviewed objective data including labs and my medical decision-making was reviewed with the Resident Physician. I agree with the documented findings, disposition and discharge plan as described except to any changes set forth below. We independently had [id number] contact with the patient. Patient with a history of multiple myeloma, COPD and diabetes was hospitalized here for shortness of breath and right upper quadrant abdominal pain. He was suspected of having a possible pneumonia and also possible acute cholecystitis. He was worked up for this and underwent gallbladder ultrasound which did not show any cholecystitis. Patient had a CT scan of his chest done which showed possible atelectasis/collapse involving his right lower lobe. As such pulmonology was consulted. Per their evaluation, patient was recommended bronchoscopy which she underwent yesterday. He was not found to have any signs of obstruction. He did have some friable mucosa and underwent BAL and biopsies which will be followed as outpatient. Pulmonology did not recommend any further antibiotics as pneumonia workup was entirely negative. Patient is feeling much better today. He is clinically stable for discharge. He does have signs of esophageal dysmotility based on his CT scan findings and symptoms. I have discussed his case with gastroenterology and they have recommended that he follow-up outpatient with chief will be arranged. In the meantime, patient will continue to take PPI. He also underwent echocardiogram to evaluate for heart failure. He does have mild LV diastolic dysfunction but has a normal EF of 60- 65%. Time spent on discharge: 10 min <Moustapha Hernandez - Last Filed: 02/03/19 08:12> - NOTES TO OUTPATIENT PROVIDER Notes to Outpatient Provider: Mr Moyer was admitted on 01/31 for shortness of breath and N/V. No etiology of the N/V was identified despite multiple imaging, but did resolve prior to discharge. Pt underwent a bronchoscopy on 02/01 during which a BAL was obtained with cultures still pending at time of discharge. Pulmonology did not feel abx were necessary. 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) Priority: Secondary Status: Chronic (4) Heart failure with preserved ejection fraction Priority: Secondary Status: Acute Qualifiers: Heart failure chronicity: chronic Qualified Code(s): I50.32 - Chronic diastolic (congestive) heart failure (5) Type 2 diabetes mellitus Priority: Secondary Status: Acute Qualifiers: Diabetes mellitus penitentiary insulin use: without penitentiary use Diabetes mellitus complication status: with kidney complications Diabetes mellitus complication detail: with chronic kidney disease Chronic kidney disease stage: stage 3 (moderate) Qualified Code(s): E11.22 - Type 2 diabetes mellitus with diabetic chronic kidney disease; N18.3 - Chronic kidney disease, stage 3 (moderate) (6) Anemia Priority: Secondary Status: Acute Qualifiers: Anemia type: due to chronic kidney disease Chronic kidney disease stage: stage 3 (moderate) Qualified Code(s): N18.3 - Chronic kidney disease, stage 3 (moderate); D63.1 - Anemia in chronic kidney disease (7) Elevated troponin Priority: Secondary Status: Acute Hospital course: Mr. Moyer is a 78 year old male who was admitted on 01/31/19 for increasing shortness of breath 2 days duration. Patient has past medical history of multiple myeloma, COPD, and DM 2. Chest x-ray from the ED demonstrated patchy areas of atelectasis versus pneumonia, and bilateral calcified pleural plaques. CT of the abdomen and pelvis demonstrated moderate retained stool without obstruction, mild gallbladder wall thickening, and mild urinary bladder wall thickening. CT spine of the lumbar region demonstrated multilevel degenerative disc disease and facet disease greatest at L3/L4 where there is severe central canal stenosis. CTA of the chest was obtained which peripheral pulmonary embolism were not able to be excluded due to suboptimal contrast bolus, however no central pulmonary embolism was detected. There was also noted collapse and consolidation within the left lower lobe as well as patulous esophagus. The patient was initially started on IV vancomycin and Zosyn osmole pneumonia. Bilateral lower extremity Dopplers were normal. Echocardiogram demonstrated LVEF 60-65%, mild left ventricular diastolic dysfunction, mild pulmonary hypertension, and no significant valvular dysfunction. Right upper quadrant ultrasound was obtained which revealed a 2-3 mm gallbladder polyp for which no additional follow-up was recommended, as well as a 9 mm simple right renal cyst. The pulmonology team was consulted for further assistance in evaluation and management of atelectasis versus possible pneumonia. Patient underwent a bronchoscopy on 02/01/19 which demonstrated atelectasis of the lower lobe with friable mucosa. BAL was performed and no mucous plugs were noted. Due to these findings and as the patient had remained afebrile, with no leukocytosis throughout admission, antibiotics were stopped. Once patient's nausea and vomiting had improved, the patient was stable for discharge. It is recommended patient follow-up with gastroenterology as outpatient for esophageal dysmotility based on CT scan from the ED. Patient was given prescription for PPI. The patient was also provided with a short course of Lasix for further diuresis as suggested by pulmonology. The patient was also given Flexeril for further back pain. Patient stable for discharge home. Discharge discussed with: patient, family, nurse - Time Spent with Patient Total time spent providing and/or coordinating discharge services: Date of admission: 01/30/19 23:15 Primary care physician: PCP NONE Consults: 01/31/19 00:07 Consult to Nutrition [CONS] Routine Comment: Consulting Provider: NUTRITION Reason for Dietary Consult: PO Supplementation Other:: poor appetite 01/31/19 08:23 Consult to Pulmonology [CONS] Routine Consulting Provider: [facility] Reason for Consult: chest pain , might need bronchoscopy Call Completed: No - Constitutional Vitals: Temp Pulse Resp BP Pulse Ox 98.1 F 71 17 153/73 96 02/02/19 06:50 02/02/19 06:50 02/02/19 06:50 02/02/19 06:50 02/02/19 06:50 General appearance: Present: cooperative, A&O X 3, pleasant, no acute distress, answers questions appropriately Exam: Constitutional: Well-developed male in no acute distress Head: Normocephalic, atraumatic Eyes: PERRL, EOMI, conjunctiva pink, sclera anicteric Neck: Supple, trachea midline, no lymphadenopathy Lungs: Clear to auscultation bilaterally. Nonlabored breathing. No wheezes, rales, or rhonchi noted. Cardiac: RRR. +S1 +s2 No murmurs, clicks, or rubs noted. GI: Abdomen soft, nontender, nondistended. Normoactive bowel sounds Extremities: Warm, radial pulses palpable and symmetrical. No cyanosis, pedal edema, or calf tenderness. Neuro: Alert and oriented 3. No focal deficits. Normal speech. Ambulating around the room without difficulty. Skin: Warm, dry, and intact. - Patient Status Functional capacity at discharge: independent ambulation Overall status at discharge: patient is back to baseline - Diet and Activity Activity: increase activity as tolerated, resume usual activities as tolerated Diet: diabetic diet, low fat, low cholesterol, low salt diet
[2019-02-02 11:40] VITALS: BP 158/65
[2019-02-05 03:40] LABS: Influenza A PCR Body Fluid NOT DETECTED; Influenza B PCR Body Fluid NOT DETECTED; RVP Body Fluid Source BAL LLL
[2019-02-05 11:07] LABS: RSV PCR Body Fluid NOT DETECTED
== END 2019-02-02 14:24 | disposition home or self-care (01) ==
LOC: 2ANU 17:42 → EMEROOARM 17:42 → SUATTDRO 23:15 → 2ANU 23:39
PROVIDERS: ADMIT Family Medicine; ATTEND Internal Medicine
PROC: ENDOBRF (2019-02-01 11:15)

== ENCOUNTER 2019-02-20 17:55 | Observation (INO) ==
[2019-02-20] MEDS ORDERED: 0.9 % Sodium Chloride 1,000 ML IVC STA (18:27)
[2019-02-20 18:31] LABS: Immature Granulocytes % 0.7 % (0-4)
[2019-02-20 18:33] LABS: Basophils % 0.1 %; Lymphocytes % 14.3 %; Red Cell Distribution Width 14.9 % (11.5-14.5)
[2019-02-20 18:37] LABS: Eosinophils # 0.6 K/mcL (0.0-0.6); Eosinophils % 6.7 %; Hematocrit 31.9 % (37.5-50.1); Hemoglobin 10.2 g/dL (12.9-16.9); Immature Platelets 10.4 % (1.1-6.1); Lymphocytes # 1.2 K/mcL (0.6-4.6); Mean Corpuscular Hemoglobin 32.4 pg (28.0-33.3); Mean Corpuscular Volume 101.3 fL (83.0-100.0); Mean Platelet Volume 12.9 fL (9.4-12.4); Monocytes # 1.6 K/mcL (0.0-1.3); Monocytes % 18.2 %; Neutrophils # 5.2 K/mcL (1.6-8.9); Red Blood Count 3.15 M/mcL (4.19-5.50); White Blood Count 8.7 K/mcL (4.3-11.1)
[2019-02-20 18:53] LABS: Calcium 7.6 mg/dL (8.6-10.3); Magnesium 1.4 mg/dL (1.6-2.6); Potassium 3.6 mEq/L (3.5-5.1)
[2019-02-20 19:06] LABS: Platelet Count 83 K/mcL (140-400)
[2019-02-20 19:07] LABS: Platelet Estimate Decreased (Normal)
[2019-02-20] MEDS ORDERED: Naloxone 0.4 MG/ML INJ IVP PRN (20:32)
[2019-02-20] MEDS ORDERED: Ondansetron 4 MG/2 ML VIAL IVP PRN (20:32)
[2019-02-20] MEDS ORDERED: 0.9 % Sodium Chloride 1,000 ML IVC SCH (20:45)
[2019-02-21] MEDS ORDERED: Dextrose Gel 15 GM/37.5 ML TUBE PO PRN ×2 (02:56)
[2019-02-21] MEDS ORDERED: D5% in Water 1,000 ML IVC PRN (02:56)
[2019-02-21] MEDS ORDERED: *HR* Dextrose 50 % in Water (Syg) 50 ML SYRINGE IVP PRN (02:56)
[2019-02-21 03:44] LABS: Hemoglobin 9.3 g/dL (12.9-16.9); Immature Granulocytes % 0.5 % (0-4)
[2019-02-21 03:46] LABS: Eosinophils # 0.8 K/mcL (0.0-0.6); Eosinophils % 10.2 %; Hematocrit 28.5 % (37.5-50.1); Immature Platelets 8.9 % (1.1-6.1); Lymphocytes % 13.1 %; Mean Corpuscular HGB Conc 32.6 g/dL (31.6-35.5); Mean Corpuscular Hemoglobin 31.5 pg (28.0-33.3); Mean Corpuscular Volume 96.6 fL (83.0-100.0); Mean Platelet Volume 12.2 fL (9.4-12.4); Monocytes # 1.7 K/mcL (0.0-1.3); Monocytes % 21.6 %; Neutrophils # 4.3 K/mcL (1.6-8.9); Red Blood Count 2.95 M/mcL (4.19-5.50); Red Cell Distribution Width 14.7 % (11.5-14.5); Segmented Neutrophils % 54.6 %; White Blood Count 7.9 K/mcL (4.3-11.1)
[2019-02-21 03:51] LABS: Prothrombin Time 11.8 Seconds (9.4-12.1)
[2019-02-21 03:54] LABS: Activated Partial Thrombo Time 26.9 Seconds (26.0-36.0)
[2019-02-21 04:03] LABS: Albumin 3.2 g/dL (3.5-5.7); Albumin/Globulin Ratio 1.8 (1.1-2.2); Bilirubin,Total 0.6 mg/dL (0.3-1.0); Globulin 1.8 g/dL (2.4-3.5); Magnesium 1.5 mg/dL (1.6-2.6); Potassium 3.9 mEq/L (3.5-5.1)
[2019-02-21] MEDS: Insulin LISPRO 300 UNITS/3 ML VIAL SQ SCH ×2 (05:56→12:49)
[2019-02-21 06:39] LABS: Platelet Count 66 K/mcL (140-400)
[2019-02-21] MEDS ORDERED: *HR* OxyCODONE/APAP 10/325 TABLET PO PRN (07:25)
[2019-02-21] MEDS ORDERED: Fluticasone Propionate Nasal 50 MCG/SPRAY BOTTLE NS PRN (07:25)
[2019-02-21] MEDS ORDERED: Finasteride 5 MG TABLET PO SCH (09:00)
[2019-02-21] MEDS ORDERED: Aspirin Enteric Coated 81 MG Tablet PO SCH (09:00)
[2019-02-21] MEDS ORDERED: Famotidine 20 MG TABLET PO SCH (09:00)
[2019-02-21] MEDS ORDERED: Acyclovir 200 MG CAPSULE PO SCH (09:00)
[2019-02-21] MEDS ORDERED: NON-FORMULARY MEDICATION 1 EACH EACH (Umeclidinium Bromide [Incruse Ellipta] 1 PUFF) IH SCH (09:00)
[2019-02-21] MEDS ORDERED: Budesonide/Formoterol 160/4.5 1 PUFF INH IH SCH (10:00)
[2019-02-21] MEDS ORDERED: Lidocaine -MPF 2% 2 ML VIAL ONE (15:05)
[2019-02-21] MEDS ORDERED: *HR* Propofol 200 MG/20 ML VIAL IVP ONE (15:05)
[2019-02-21] MEDS ORDERED: *HR* PHENYLEPHRINE 1,000 MCG/10 ML SYRINGE IVP ONE (15:41)
[2019-02-21 17:12] VITALS: BP 158/75
[2019-02-21] MEDS ORDERED: Insulin LISPRO 300 UNITS/3 ML VIAL SQ SCH ×2 (17:15→21:00)
[2019-02-21] MEDS ORDERED: Gabapentin 400 MG CAPSULE PO SCH (21:00)
== END 2019-02-21 18:58 | disposition home or self-care (01) ==
LOC: 3ANU 17:55 → EMEROOARM 17:55 → SUATTDRO 20:26 → 3ANU 21:27
PROVIDERS: ADMIT Internal Medicine; ATTEND Internal Medicine
PROC: ENDOEBX (2019-02-21 13:00)

== ENCOUNTER 2019-03-10 11:44 | Observation (INO) ==
[2019-03-10 13:53] LABS: Basophils # 0.1 K/mcL (0.0-0.2); Basophils % 1.1 %; Eosinophils # 0.3 K/mcL (0.0-0.6); Eosinophils % 4.6 %; Hemoglobin 10.2 g/dL (12.9-16.9); Immature Granulocytes % 0.9 % (0-4); Lymphocytes # 0.9 K/mcL (0.6-4.6); Lymphocytes % 15.8 %; Mean Corpuscular Hemoglobin 32.8 pg (28.0-33.3); Mean Corpuscular Volume 96.5 fL (83.0-100.0); Mean Platelet Volume 9.8 fL (9.4-12.4); Monocytes # 1.3 K/mcL (0.0-1.3); Monocytes % 22.6 %; Neutrophils # 3.1 K/mcL (1.6-8.9); Platelet Count 233 K/mcL (140-400); Red Blood Count 3.11 M/mcL (4.19-5.50); Red Cell Distribution Width 15.3 % (11.5-14.5); White Blood Count 5.6 K/mcL (4.3-11.1)
[2019-03-10 14:04] LABS: Bilirubin,Urine Negative (Negative); Blood,Urine Negative (Negative); Clarity,Urine Clear (Clear); Color,Urine Yellow (Yellow); Glucose,Urine (UA) Normal (Normal); Ketones,Urine Negative (Negative); Leukocyte Esterase,Urine Negative (Negative); Nitrite,Urine Negative (Negative); PH,Urine 6.5 pH Units (5.0-8.0); Protein,Urine Negative (Neg-Trace); Specific Gravity,Urine 1.014 (1.010-1.025); Urobilinogen,Urine Normal (Normal)
[2019-03-10 14:14] LABS: BUN/Creatinine Ratio 19 (6-26); Blood Urea Nitrogen 35 mg/dL (8-23); Calcium 9.1 mg/dL (8.6-10.3); Carbon Dioxide 31 mEq/L (23-29); Chloride 97 mEq/L (98-107); Glucose 168 mg/dL (70-105); Osmolality,Calculated 288 (280-300); Potassium 4.5 mEq/L (3.5-5.1); Sodium 133 mEq/L (136-145); Troponin I < 0.03 ng/mL (< 0.04); eGFR For African Americans 42 (> 60); eGFR For Non-African Americans 35 (> 60)
[2019-03-10 14:21] LABS: Platelet Estimate Normal (Normal)
[2019-03-10 14:24] LABS: Amphetamine Screen,Urine Negative ng/mL (Cutoff=1000); Barbiturate Screen,Urine Negative ng/mL (Cutoff=200); Benzodiazepines Screen,Urine Negative ng/mL (Cutoff=200); Cannabinoid Screen,Urine Negative ng/mL (Cutoff = 50); Cocaine Screen,Urine Negative ng/mL (Cutoff= 300); Opiate Screen,Urine Negative ng/mL (Cutoff=300); Phencyclidine Screen,Urine Negative ng/mL (Cutoff=25)
[2019-03-10] MEDS: 0.9 % Sodium Chloride 1,000 ML IVC SCH (15:39)
[2019-03-10] MEDS ORDERED: Mag Hydrox/Al Hydrox/Simeth 30 ML UDC PO PRN (17:44)
[2019-03-10] MEDS ORDERED: MOM Conc 10 ML UD.LIQ PO PRN (17:44)
[2019-03-10] MEDS ORDERED: Acetaminophen 325 MG TABLET PO PRN (17:44)
[2019-03-10] MEDS ORDERED: Naloxone 0.4 MG/ML INJ IVP PRN (17:44)
[2019-03-10] MEDS ORDERED: Ondansetron ODT 4 MG TAB.RAPDIS PO PRN (17:49)
[2019-03-10] MEDS ORDERED: D5% in Water 1,000 ML IVC PRN (17:50)
[2019-03-10] MEDS ORDERED: Dextrose Gel 15 GM/37.5 ML TUBE PO PRN ×2 (17:50)
[2019-03-10] MEDS ORDERED: *HR* Dextrose 50 % in Water (Syg) 50 ML SYRINGE IVP PRN (17:50)
[2019-03-10] MEDS ORDERED: (Lenalidomide [Revlimid] 10 MG) PO SCH (20:00)
[2019-03-10] MEDS ORDERED: Insulin LISPRO 300 UNITS/3 ML VIAL SQ SCH (21:00)
[2019-03-10] MEDS ORDERED: Gabapentin 400 MG CAPSULE PO SCH (21:00)
[2019-03-10] MEDS ORDERED: Gabapentin 300 MG CAPSULE PO SCH (21:00)
[2019-03-10] MEDS: *HR* OxyCODONE/APAP 10/325 TABLET PO PRN (21:06)
[2019-03-10] MEDS: Acyclovir 200 MG CAPSULE PO SCH (21:07)
[2019-03-10] MEDS: Budesonide/Formoterol 160/4.5 1 PUFF INH IH SCH (21:41)
[2019-03-11] MEDS: 0.9 % Sodium Chloride 1,000 ML IVC SCH (01:55)
[2019-03-11] MEDS: *HR* OxyCODONE/APAP 10/325 TABLET PO PRN ×2 (05:53→16:43)
[2019-03-11 06:52] LABS: Hematocrit 28.4 % (37.5-50.1); Hemoglobin 9.4 g/dL (12.9-16.9); Mean Corpuscular HGB Conc 33.1 g/dL (31.6-35.5); Mean Corpuscular Hemoglobin 32.3 pg (28.0-33.3); Mean Corpuscular Volume 97.6 fL (83.0-100.0); Mean Platelet Volume 10.1 fL (9.4-12.4); Platelet Count 217 K/mcL (140-400); Red Blood Count 2.91 M/mcL (4.19-5.50); Red Cell Distribution Width 15.1 % (11.5-14.5); White Blood Count 5.1 K/mcL (4.3-11.1)
[2019-03-11] MEDS: Insulin LISPRO 300 UNITS/3 ML VIAL SQ SCH ×3 (07:22→16:39)
[2019-03-11 07:25] LABS: Calcium 8.7 mg/dL (8.6-10.3); Magnesium 1.6 mg/dL (1.6-2.6); Potassium 4.4 mEq/L (3.5-5.1)
[2019-03-11] MEDS: Acyclovir 200 MG CAPSULE PO SCH (07:28)
[2019-03-11] MEDS: Budesonide/Formoterol 160/4.5 1 PUFF INH IH SCH (07:39)
[2019-03-11] MEDS ORDERED: Cyanocobalamin (B-12) 1,000 MCG TABLET PO SCH (09:00)
[2019-03-11] MEDS ORDERED: Finasteride 5 MG TABLET PO SCH (09:00)
[2019-03-11] MEDS ORDERED: Aspirin Enteric Coated 81 MG Tablet PO SCH (09:00)
[2019-03-11] MEDS ORDERED: Cholecalciferol (D-3) 1,000 UNIT (25MCG) TABLET PO SCH (09:00)
[2019-03-11] MEDS ORDERED: Tiotropium 18 MCG inhalation IH SCH (10:00)
[2019-03-11] MEDS ORDERED: 0.9 % Sodium Chloride 1,000 ML IVC SCH (11:27)
[2019-03-11 18:59] VITALS: BP 157/83
== END 2019-03-11 19:19 | disposition home or self-care (01) ==
LOC: 3BNU 11:44 → EMEROOARM 11:44 → SUATTDRO 15:33 → 3BNU 16:52
PROVIDERS: ADMIT Student in an Organized Health Care Education/Training Program; ATTEND Internal Medicine

== ENCOUNTER 2021-06-07 18:27 | Inpatient (IN) ==
[2021-06-07] MEDS ORDERED: Ipratropium/Albuterol Neb 3 ML IH ONE (19:05)
[2021-06-07] MEDS ORDERED: Isovue-370 500 ML BOTTLE IVP ONE (19:05)
[2021-06-07 19:26] LABS: Basophils % 0.1 %; Eosinophils % 0.5 %; Hematocrit 36.7 % (37.5-50.1); Hemoglobin 11.9 g/dL (12.9-16.9); Immature Granulocytes % 0.7 % (0-4); Lymphocytes # 1.2 K/mcL (0.6-4.6); Lymphocytes % 16.8 %; Mean Corpuscular HGB Conc 32.4 g/dL (31.6-35.5); Mean Corpuscular Hemoglobin 32.7 pg (28.0-33.3); Mean Corpuscular Volume 100.8 fL (83.0-100.0); Mean Platelet Volume 9.4 fL (9.4-12.4); Monocytes # 0.8 K/mcL (0.0-1.3); Neutrophils # 5.2 K/mcL (1.6-8.9); Platelet Count 173 K/mcL (140-400); Red Blood Count 3.64 M/mcL (4.19-5.50); Red Cell Distribution Width 14.8 % (11.5-14.5); Segmented Neutrophils % 70.9 %; White Blood Count 7.4 K/mcL (4.3-11.1)
[2021-06-07 19:39] LABS: Albumin 3.9 g/dL (3.5-5.7); Albumin/Globulin Ratio 1.3 (1.1-2.2); Bilirubin,Direct 0.1 mg/dL (0.0-0.2); Bilirubin,Indirect 0.4 mg/dL (0.0-1.0); Bilirubin,Total 0.5 mg/dL (0.3-1.0); Calcium 9.2 mg/dL (8.6-10.3); Potassium 3.6 mEq/L (3.5-5.1); Total Protein 6.9 g/dL (6.4-8.9); Troponin I 0.03 ng/mL (< 0.04)
[2021-06-07 20:05] LABS: Prothrombin Time 11.5 Seconds (9.4-12.1)
[2021-06-07 20:08] LABS: Activated Partial Thrombo Time 31.6 Seconds (26.0-36.0)
[2021-06-07] MEDS ORDERED: Azithromycin 500 MG in 0.9 % Sodium Chloride 250 ML IVPB ONE (21:08)
[2021-06-07] MEDS ORDERED: cefTRIAXone 1,000 MG in Water for inj. (sterile) 10 ML IVP ONE (21:08)
[2021-06-07] MEDS ORDERED: Naloxone 0.4 MG/ML INJ IVP PRN ×2 (21:42→22:21)
[2021-06-07] MEDS ORDERED: cefTRIAXone 1,000 MG in 0.9 % Sodium Chloride Mini Bag 100 ML IVPB ONE (22:00)
[2021-06-07] MEDS ORDERED: Melatonin 3 MG TABLET PO PRN (22:21)
[2021-06-07] MEDS ORDERED: Acetaminophen 325 MG TABLET PO PRN (22:21)
[2021-06-07] MEDS ORDERED: *HR* HYDROcodone/Acet 5/325 mg TABLET PO PRN (22:21)
[2021-06-07] MEDS ORDERED: *HR* OxyCODONE Immed Rel 5 MG TABLET PO PRN (22:21)
[2021-06-07] MEDS ORDERED: Ondansetron ODT 4 MG TAB.RAPDIS SL PRN (22:21)
[2021-06-07] MEDS ORDERED: Albuterol 2.5 MG/3 ML NEBULIZER IH PRN (22:37)
[2021-06-07] MEDS ORDERED: Remdesivir 200 MG in 0.9 % Sodium Chloride 100 ML IVPB ONE (23:30)
[2021-06-07] MEDS ORDERED: *HR* Dextrose 50 % in Water (Syg) 50 ML SYRINGE IVP PRN (23:34)
[2021-06-07] MEDS ORDERED: D5% in Water 1,000 ML IVC PRN (23:34)
[2021-06-07] MEDS ORDERED: Dextrose Gel 15 GM/37.5 ML TUBE PO PRN ×2 (23:34)
[2021-06-08 00:21] LABS: Adenovirus Not Detected (Not Detect); Bordetella Pertussis Not Detected (Not Detect); Chlamydophila pneumoniae Not Detected (Not Detect); Coronavirus 229E Not Detected (Not Detect); Coronavirus HKU1 Not Detected (Not Detect); Coronavirus NL63 Not Detected (Not Detect); Coronavirus OC43 Not Detected (Not Detect); Human Metapneumovirus Not Detected (Not Detect); Human Rhinovirus/Enterovirus Not Detected (Not Detect); Influenza A Subtype 2009 H1 Not Detected (Not Detect); Influenza B Not Detected (Not Detect); Mycoplasma pneumoniae Not Detected (Not Detect); Parainfluenza Virus 1 Not Detected (Not Detect); Parainfluenza Virus 2 Not Detected (Not Detect); Parainfluenza Virus 3 Not Detected (Not Detect); Parainfluenza Virus 4 Not Detected (Not Detect); Respiratory Syncytial Virus Not Detected (Not Detect)
[2021-06-08 00:24] LABS: SARS-CoV-2 DETECTED (Not Detect)
[2021-06-08 00:30] LABS: Basophils % 0.1 %; Eosinophils % 0.1 %; Hematocrit 31.6 % (37.5-50.1); Hemoglobin 10.8 g/dL (12.9-16.9); Immature Granulocytes % 1.2 % (0-4); Lymphocytes # 0.2 K/mcL (0.6-4.6); Lymphocytes % 2.5 %; Mean Corpuscular HGB Conc 34.2 g/dL (31.6-35.5); Mean Corpuscular Hemoglobin 33.5 pg (28.0-33.3); Mean Corpuscular Volume 98.1 fL (83.0-100.0); Mean Platelet Volume 8.9 fL (9.4-12.4); Monocytes # 0.5 K/mcL (0.0-1.3); Monocytes % 5.6 %; Neutrophils # 7.5 K/mcL (1.6-8.9); Platelet Count 152 K/mcL (140-400); Red Blood Count 3.22 M/mcL (4.19-5.50); Red Cell Distribution Width 14.6 % (11.5-14.5); Segmented Neutrophils % 90.5 %; White Blood Count 8.3 K/mcL (4.3-11.1)
[2021-06-08] MEDS: Insulin LISPRO 300 UNITS/3 ML VIAL SUBQ SCH ×5 (00:32→20:04)
[2021-06-08 00:45] LABS: Albumin 3.5 g/dL (3.5-5.7); Albumin/Globulin Ratio 1.3 (1.1-2.2); Bilirubin,Direct 0.1 mg/dL (0.0-0.2); Bilirubin,Indirect 0.3 mg/dL (0.0-1.0); Bilirubin,Total 0.4 mg/dL (0.3-1.0); Calcium 8.7 mg/dL (8.6-10.3); Chol/HDL Ratio 3.5 (0-4.9); Globulin 2.7 g/dL (2.4-3.5); Magnesium 1.7 mg/dL (1.6-2.6); Total Protein 6.2 g/dL (6.4-8.9)
[2021-06-08] MEDS: *HR* Heparin 5,000 UNIT/ML VIAL SQ SCH ×3 (05:55→20:17)
[2021-06-08] MEDS ORDERED: Azithromycin 500 MG in 0.9 % Sodium Chloride 250 ML IVPB SCH (21:00)
[2021-06-08] MEDS: Remdesivir 100 MG in 0.9 % Sodium Chloride 100 ML IVPB SCH (23:08)
[2021-06-09 03:31] LABS: Basophils % 0.1 %; Hematocrit 33.5 % (37.5-50.1); Hemoglobin 11.6 g/dL (12.9-16.9); Immature Granulocytes % 0.9 % (0-4); Lymphocytes # 0.4 K/mcL (0.6-4.6); Lymphocytes % 3.6 %; Mean Corpuscular HGB Conc 34.6 g/dL (31.6-35.5); Mean Corpuscular Hemoglobin 33.8 pg (28.0-33.3); Mean Corpuscular Volume 97.7 fL (83.0-100.0); Mean Platelet Volume 8.9 fL (9.4-12.4); Monocytes # 0.6 K/mcL (0.0-1.3); Monocytes % 5.7 %; Neutrophils # 9.5 K/mcL (1.6-8.9); Platelet Count 197 K/mcL (140-400); Red Blood Count 3.43 M/mcL (4.19-5.50); Red Cell Distribution Width 14.3 % (11.5-14.5); Segmented Neutrophils % 89.7 %; White Blood Count 10.5 K/mcL (4.3-11.1)
[2021-06-09 03:58] LABS: Albumin 3.6 g/dL (3.5-5.7); Albumin/Globulin Ratio 1.2 (1.1-2.2); Bilirubin,Direct 0.2 mg/dL (0.0-0.2); Bilirubin,Indirect 0.2 mg/dL (0.0-1.0); Bilirubin,Total 0.4 mg/dL (0.3-1.0); Globulin 2.9 g/dL (2.4-3.5); Total Protein 6.5 g/dL (6.4-8.9)
[2021-06-09 04:00] LABS: D-Dimer 468 ng/mLFEU (0-500)
[2021-06-09 04:01] LABS: Fibrinogen 787 mg/dL (169-393)
[2021-06-09 04:04] LABS: Calcium 8.8 mg/dL (8.6-10.3); Phosphorous 1.9 mg/dL (2.7-4.5); Potassium 4.1 mEq/L (3.5-5.1)
[2021-06-09] MEDS: *HR* Heparin 5,000 UNIT/ML VIAL SQ SCH ×3 (05:56→20:38)
[2021-06-09] MEDS: Dexamethasone Sodium Phos/PF 10 MG/ML VIAL IVP SCH (08:20)
[2021-06-09] MEDS: Insulin LISPRO 300 UNITS/3 ML VIAL SUBQ SCH ×4 (08:21→21:01)
[2021-06-09] MEDS: Cholecalciferol (D-3) 1,000 UNIT (25MCG) TABLET PO SCH (09:32)
[2021-06-09] MEDS: Cyanocobalamin (B-12) 1,000 MCG TABLET PO SCH (09:33)
[2021-06-09] MEDS: amLODIPine 5 MG TABLET PO SCH (09:34)
[2021-06-09] MEDS: Aspirin Enteric Coated 81 MG Tablet PO SCH (09:34)
[2021-06-09] MEDS: Gabapentin 300 MG CAPSULE PO SCH ×2 (09:34→20:38)
[2021-06-09] MEDS: Sucralfate 1 GM TABLET PO SCH ×2 (09:34→20:38)
[2021-06-09] MEDS: *HR* Acetylcysteine 20% 600 MG/3 ML ORAL SYRINGE PO SCH ×2 (09:48→20:38)
[2021-06-09] MEDS: Budesonide/Formoterol 160/4.5 1 PUFF INH IH SCH ×2 (12:04→21:50)
[2021-06-09] MEDS: Finasteride 5 MG TABLET PO SCH (18:06)
[2021-06-09] MEDS: allopurinoL 100 MG TABLET PO SCH (18:06)
[2021-06-09] MEDS: Zinc Sulfate 220 MG CAPSULE PO SCH (18:06)
[2021-06-09] MEDS: Magnesium Oxide 400 MG TABLET PO SCH (18:06)
[2021-06-09] MEDS: Mirtazapine 15 MG TABLET PO SCH (20:38)
[2021-06-09] MEDS: Remdesivir 100 MG in 0.9 % Sodium Chloride 100 ML IVPB SCH (23:20)
[2021-06-10] MEDS: *HR* Heparin 5,000 UNIT/ML VIAL SQ SCH ×3 (05:55→21:20)
[2021-06-10 08:00] LABS: Basophils % 0.1 %; Hematocrit 32.7 % (37.5-50.1); Hemoglobin 10.9 g/dL (12.9-16.9); Immature Granulocytes % 0.8 % (0-4); Lymphocytes # 0.4 K/mcL (0.6-4.6); Mean Corpuscular HGB Conc 33.3 g/dL (31.6-35.5); Mean Corpuscular Hemoglobin 32.9 pg (28.0-33.3); Mean Corpuscular Volume 98.8 fL (83.0-100.0); Mean Platelet Volume 9.9 fL (9.4-12.4); Monocytes # 0.5 K/mcL (0.0-1.3); Platelet Count 194 K/mcL (140-400); Red Blood Count 3.31 M/mcL (4.19-5.50); Red Cell Distribution Width 14.6 % (11.5-14.5); Segmented Neutrophils % 90.1 %; White Blood Count 8.9 K/mcL (4.3-11.1)
[2021-06-10 08:15] LABS: Albumin 3.5 g/dL (3.5-5.7); Albumin/Globulin Ratio 1.3 (1.1-2.2); Bilirubin,Direct 0.1 mg/dL (0.0-0.2); Bilirubin,Indirect 0.2 mg/dL (0.0-1.0); Bilirubin,Total 0.3 mg/dL (0.3-1.0); Globulin 2.6 g/dL (2.4-3.5); Total Protein 6.1 g/dL (6.4-8.9)
[2021-06-10 08:16] LABS: Calcium 8.4 mg/dL (8.6-10.3); Potassium 4.5 mEq/L (3.5-5.1)
[2021-06-10] MEDS: Budesonide/Formoterol 160/4.5 1 PUFF INH IH SCH ×2 (08:46→20:43)
[2021-06-10] MEDS: Insulin LISPRO 300 UNITS/3 ML VIAL SUBQ SCH ×4 (10:52→21:21)
[2021-06-10] MEDS: Dexamethasone Sodium Phos/PF 10 MG/ML VIAL IVP SCH (11:01)
[2021-06-10] MEDS: Aspirin Enteric Coated 81 MG Tablet PO SCH (11:01)
[2021-06-10] MEDS: *HR* Acetylcysteine 20% 600 MG/3 ML ORAL SYRINGE PO SCH ×2 (11:01→21:19)
[2021-06-10] MEDS: Gabapentin 300 MG CAPSULE PO SCH ×2 (11:02→21:20)
[2021-06-10] MEDS: Cholecalciferol (D-3) 1,000 UNIT (25MCG) TABLET PO SCH (11:03)
[2021-06-10] MEDS: amLODIPine 5 MG TABLET PO SCH (11:03)
[2021-06-10] MEDS: Cyanocobalamin (B-12) 1,000 MCG TABLET PO SCH (11:03)
[2021-06-10] MEDS: Sucralfate 1 GM TABLET PO SCH ×2 (11:05→21:20)
[2021-06-10] MEDS: allopurinoL 100 MG TABLET PO SCH (18:19)
[2021-06-10] MEDS: Finasteride 5 MG TABLET PO SCH (18:19)
[2021-06-10] MEDS: Zinc Sulfate 220 MG CAPSULE PO SCH (18:19)
[2021-06-10] MEDS: Magnesium Oxide 400 MG TABLET PO SCH (18:19)
[2021-06-10] MEDS: Mirtazapine 15 MG TABLET PO SCH (21:20)
[2021-06-11] MEDS: Remdesivir 100 MG in 0.9 % Sodium Chloride 100 ML IVPB SCH (00:31)
[2021-06-11] MEDS: *HR* Heparin 5,000 UNIT/ML VIAL SQ SCH ×3 (06:21→21:39)
[2021-06-11 06:34] LABS: Basophils % 0.2 %; Hematocrit 32.6 % (37.5-50.1); Immature Granulocytes % 1.7 % (0-4); Lymphocytes # 0.3 K/mcL (0.6-4.6); Lymphocytes % 3.1 %; Mean Corpuscular HGB Conc 33.7 g/dL (31.6-35.5); Mean Corpuscular Hemoglobin 32.9 pg (28.0-33.3); Mean Corpuscular Volume 97.6 fL (83.0-100.0); Mean Platelet Volume 9.8 fL (9.4-12.4); Monocytes # 0.5 K/mcL (0.0-1.3); Monocytes % 5.7 %; Platelet Count 221 K/mcL (140-400); Red Blood Count 3.34 M/mcL (4.19-5.50); Red Cell Distribution Width 14.4 % (11.5-14.5); Segmented Neutrophils % 89.3 %
[2021-06-11 06:56] LABS: Albumin 3.4 g/dL (3.5-5.7); Albumin/Globulin Ratio 1.3 (1.1-2.2); Bilirubin,Indirect 0.3 mg/dL (0.0-1.0); Bilirubin,Total 0.3 mg/dL (0.3-1.0); Globulin 2.7 g/dL (2.4-3.5); Total Protein 6.1 g/dL (6.4-8.9)
[2021-06-11 06:59] LABS: Calcium 8.4 mg/dL (8.6-10.3); Potassium 4.5 mEq/L (3.5-5.1)
[2021-06-11] MEDS: Budesonide/Formoterol 160/4.5 1 PUFF INH IH SCH ×2 (08:07→20:54)
[2021-06-11] MEDS: Dexamethasone Sodium Phos/PF 10 MG/ML VIAL IVP SCH (09:14)
[2021-06-11] MEDS: *HR* Acetylcysteine 20% 600 MG/3 ML ORAL SYRINGE PO SCH ×2 (09:14→21:36)
[2021-06-11] MEDS: Cholecalciferol (D-3) 1,000 UNIT (25MCG) TABLET PO SCH (09:14)
[2021-06-11] MEDS: Cyanocobalamin (B-12) 1,000 MCG TABLET PO SCH (09:14)
[2021-06-11] MEDS: Sucralfate 1 GM TABLET PO SCH ×2 (09:14→21:37)
[2021-06-11] MEDS: Aspirin Enteric Coated 81 MG Tablet PO SCH (09:14)
[2021-06-11] MEDS: Gabapentin 300 MG CAPSULE PO SCH ×2 (09:14→21:37)
[2021-06-11] MEDS: amLODIPine 5 MG TABLET PO SCH (09:14)
[2021-06-11] MEDS: Insulin LISPRO 300 UNITS/3 ML VIAL SUBQ SCH ×4 (09:15→21:42)
[2021-06-11] MEDS: allopurinoL 100 MG TABLET PO SCH (18:58)
[2021-06-11] MEDS: Zinc Sulfate 220 MG CAPSULE PO SCH (18:58)
[2021-06-11] MEDS: Finasteride 5 MG TABLET PO SCH (18:58)
[2021-06-11] MEDS: Magnesium Oxide 400 MG TABLET PO SCH (18:58)
[2021-06-11] MEDS: Mirtazapine 15 MG TABLET PO SCH (21:39)
[2021-06-11] MEDS: Insulin DETEMIR 100 UNIT/ML X5UNITS SUBQ SCH (21:41)
[2021-06-12] MEDS: Remdesivir 100 MG in 0.9 % Sodium Chloride 100 ML IVPB SCH (00:25)
[2021-06-12 01:11] LABS: Basophils % 0.3 %; Hematocrit 33.3 % (37.5-50.1); Hemoglobin 11.2 g/dL (12.9-16.9); Immature Granulocytes % 4.1 % (0-4); Lymphocytes # 0.3 K/mcL (0.6-4.6); Lymphocytes % 3.3 %; Mean Corpuscular HGB Conc 33.6 g/dL (31.6-35.5); Mean Corpuscular Hemoglobin 32.8 pg (28.0-33.3); Mean Corpuscular Volume 97.7 fL (83.0-100.0); Mean Platelet Volume 9.5 fL (9.4-12.4); Monocytes # 0.7 K/mcL (0.0-1.3); Monocytes % 6.8 %; Neutrophils # 8.6 K/mcL (1.6-8.9); Nucleated Red Blood Cells 0.2 /100 WBC (0); Platelet Count 218 K/mcL (140-400); Red Blood Count 3.41 M/mcL (4.19-5.50); Red Cell Distribution Width 14.3 % (11.5-14.5); Segmented Neutrophils % 85.5 %; White Blood Count 10.1 K/mcL (4.3-11.1)
[2021-06-12 01:24] LABS: Albumin 3.4 g/dL (3.5-5.7); Albumin/Globulin Ratio 1.4 (1.1-2.2); Bilirubin,Direct 0.1 mg/dL (0.0-0.2); Bilirubin,Indirect 0.2 mg/dL (0.0-1.0); Bilirubin,Total 0.3 mg/dL (0.3-1.0); Globulin 2.5 g/dL (2.4-3.5); Total Protein 5.9 g/dL (6.4-8.9)
[2021-06-12] MEDS: *HR* Heparin 5,000 UNIT/ML VIAL SQ SCH ×3 (06:27→23:30)
[2021-06-12 08:12] LABS: Calcium 8.4 mg/dL (8.6-10.3)
[2021-06-12] MEDS: Insulin LISPRO 300 UNITS/3 ML VIAL SUBQ SCH ×4 (08:42→23:31)
[2021-06-12] MEDS: amLODIPine 5 MG TABLET PO SCH (08:43)
[2021-06-12] MEDS: Dexamethasone Sodium Phos/PF 10 MG/ML VIAL IVP SCH (08:43)
[2021-06-12] MEDS: *HR* Acetylcysteine 20% 600 MG/3 ML ORAL SYRINGE PO SCH ×2 (08:43→23:40)
[2021-06-12] MEDS: Sucralfate 1 GM TABLET PO SCH ×2 (08:43→23:30)
[2021-06-12] MEDS: Cholecalciferol (D-3) 1,000 UNIT (25MCG) TABLET PO SCH (08:43)
[2021-06-12] MEDS: Budesonide/Formoterol 160/4.5 1 PUFF INH IH SCH ×2 (08:44→21:29)
[2021-06-12] MEDS: Gabapentin 300 MG CAPSULE PO SCH ×2 (08:44→23:30)
[2021-06-12] MEDS: Cyanocobalamin (B-12) 1,000 MCG TABLET PO SCH (08:44)
[2021-06-12] MEDS: Aspirin Enteric Coated 81 MG Tablet PO SCH (08:44)
[2021-06-12] MEDS ORDERED: Insulin LISPRO 300 UNITS/3 ML VIAL SUBQ ONE (16:30)
[2021-06-12] MEDS: Finasteride 5 MG TABLET PO SCH (16:35)
[2021-06-12] MEDS: allopurinoL 100 MG TABLET PO SCH (16:35)
[2021-06-12] MEDS: Zinc Sulfate 220 MG CAPSULE PO SCH (16:35)
[2021-06-12] MEDS: Magnesium Oxide 400 MG TABLET PO SCH (16:35)
[2021-06-12] MEDS: Mirtazapine 15 MG TABLET PO SCH (23:30)
[2021-06-12] MEDS: Insulin DETEMIR 100 UNIT/ML X5UNITS SUBQ SCH (23:31)
[2021-06-13] MEDS ORDERED: *HR* Metoprolol 5 MG/5 ML VIAL IVP ONE (04:09)
[2021-06-13] MEDS: *HR* Heparin 5,000 UNIT/ML VIAL SQ SCH ×3 (04:11→20:51)
[2021-06-13] MEDS: Dexamethasone Sodium Phos/PF 10 MG/ML VIAL IVP SCH (08:36)
[2021-06-13] MEDS: Aspirin Enteric Coated 81 MG Tablet PO SCH (08:37)
[2021-06-13] MEDS: Sucralfate 1 GM TABLET PO SCH ×2 (08:37→20:52)
[2021-06-13] MEDS: Metoprolol XL (24 HR) Succ 25 MG TAB.ER.24H PO SCH (08:37)
[2021-06-13] MEDS: Cholecalciferol (D-3) 1,000 UNIT (25MCG) TABLET PO SCH (08:37)
[2021-06-13] MEDS: Cyanocobalamin (B-12) 1,000 MCG TABLET PO SCH (08:37)
[2021-06-13] MEDS: amLODIPine 5 MG TABLET PO SCH (08:37)
[2021-06-13] MEDS: *HR* Acetylcysteine 20% 600 MG/3 ML ORAL SYRINGE PO SCH ×2 (08:37→23:22)
[2021-06-13] MEDS: Gabapentin 300 MG CAPSULE PO SCH ×2 (08:37→20:52)
[2021-06-13] MEDS: Budesonide/Formoterol 160/4.5 1 PUFF INH IH SCH ×2 (08:43→20:38)
[2021-06-13] MEDS: Insulin LISPRO 300 UNITS/3 ML VIAL SUBQ SCH ×4 (08:50→20:52)
[2021-06-13] MEDS: Finasteride 5 MG TABLET PO SCH (17:09)
[2021-06-13] MEDS: Magnesium Oxide 400 MG TABLET PO SCH (17:10)
[2021-06-13] MEDS: allopurinoL 100 MG TABLET PO SCH (17:10)
[2021-06-13] MEDS: Zinc Sulfate 220 MG CAPSULE PO SCH (17:10)
[2021-06-13 19:50] LABS: Basophils % 0.3 %; Hematocrit 34.2 % (37.5-50.1); Hemoglobin 11.6 g/dL (12.9-16.9); Immature Granulocytes % 4.8 % (0-4); Lymphocytes # 0.4 K/mcL (0.6-4.6); Mean Corpuscular HGB Conc 33.9 g/dL (31.6-35.5); Mean Corpuscular Hemoglobin 32.8 pg (28.0-33.3); Mean Corpuscular Volume 96.6 fL (83.0-100.0); Mean Platelet Volume 9.6 fL (9.4-12.4); Monocytes # 0.6 K/mcL (0.0-1.3); Neutrophils # 10.2 K/mcL (1.6-8.9); Nucleated Red Blood Cells 0.3 /100 WBC (0); Platelet Count 213 K/mcL (140-400); Red Blood Count 3.54 M/mcL (4.19-5.50); Red Cell Distribution Width 14.3 % (11.5-14.5); Segmented Neutrophils % 86.9 %; White Blood Count 11.8 K/mcL (4.3-11.1)
[2021-06-13 20:08] LABS: Calcium 8.6 mg/dL (8.6-10.3); Potassium 4.9 mEq/L (3.5-5.1)
[2021-06-13] MEDS: Mirtazapine 15 MG TABLET PO SCH (20:52)
[2021-06-13] MEDS: Insulin DETEMIR 100 UNIT/ML X5UNITS SUBQ SCH (20:53)
[2021-06-14] MEDS: *HR* Heparin 5,000 UNIT/ML VIAL SQ SCH ×3 (05:27→22:19)
[2021-06-14] MEDS: Cholecalciferol (D-3) 1,000 UNIT (25MCG) TABLET PO SCH (08:25)
[2021-06-14] MEDS: Metoprolol XL (24 HR) Succ 25 MG TAB.ER.24H PO SCH (08:25)
[2021-06-14] MEDS: Cyanocobalamin (B-12) 1,000 MCG TABLET PO SCH (08:25)
[2021-06-14] MEDS: Sucralfate 1 GM TABLET PO SCH ×2 (08:25→22:20)
[2021-06-14] MEDS: Insulin LISPRO 300 UNITS/3 ML VIAL SUBQ SCH ×4 (08:25→22:21)
[2021-06-14] MEDS: Aspirin Enteric Coated 81 MG Tablet PO SCH (08:25)
[2021-06-14] MEDS: *HR* Acetylcysteine 20% 600 MG/3 ML ORAL SYRINGE PO SCH (08:25)
[2021-06-14] MEDS: Gabapentin 300 MG CAPSULE PO SCH ×2 (08:25→22:20)
[2021-06-14] MEDS: amLODIPine 5 MG TABLET PO SCH (08:26)
[2021-06-14] MEDS: dexAMETHasone 4 MG TABLET PO SCH (08:26)
[2021-06-14] MEDS: Budesonide/Formoterol 160/4.5 1 PUFF INH IH SCH ×2 (08:41→21:05)
[2021-06-14] MEDS: Zinc Sulfate 220 MG CAPSULE PO SCH (17:13)
[2021-06-14] MEDS: allopurinoL 100 MG TABLET PO SCH (17:13)
[2021-06-14] MEDS: Magnesium Oxide 400 MG TABLET PO SCH (17:13)
[2021-06-14] MEDS: Finasteride 5 MG TABLET PO SCH (17:13)
[2021-06-14] MEDS: Mirtazapine 15 MG TABLET PO SCH (22:20)
[2021-06-14] MEDS: Insulin DETEMIR 100 UNIT/ML X5UNITS SUBQ SCH (22:32)
[2021-06-15] MEDS: *HR* Acetylcysteine 20% 600 MG/3 ML ORAL SYRINGE PO SCH ×3 (00:43→21:21)
[2021-06-15] MEDS: *HR* Heparin 5,000 UNIT/ML VIAL SQ SCH ×3 (05:29→21:21)
[2021-06-15] MEDS: Budesonide/Formoterol 160/4.5 1 PUFF INH IH SCH ×2 (07:52→20:33)
[2021-06-15] MEDS: Insulin LISPRO 300 UNITS/3 ML VIAL SUBQ SCH ×4 (08:38→21:18)
[2021-06-15] MEDS: Aspirin Enteric Coated 81 MG Tablet PO SCH (08:41)
[2021-06-15] MEDS: Sucralfate 1 GM TABLET PO SCH ×2 (08:41→21:21)
[2021-06-15] MEDS: Gabapentin 300 MG CAPSULE PO SCH ×2 (08:41→21:21)
[2021-06-15] MEDS: Cholecalciferol (D-3) 1,000 UNIT (25MCG) TABLET PO SCH (08:42)
[2021-06-15] MEDS: amLODIPine 5 MG TABLET PO SCH (08:43)
[2021-06-15] MEDS: Metoprolol XL (24 HR) Succ 25 MG TAB.ER.24H PO SCH (08:43)
[2021-06-15] MEDS: Cyanocobalamin (B-12) 1,000 MCG TABLET PO SCH (08:44)
[2021-06-15] MEDS: dexAMETHasone 4 MG TABLET PO SCH (08:54)
[2021-06-15] MEDS: Magnesium Oxide 400 MG TABLET PO SCH (17:43)
[2021-06-15] MEDS: allopurinoL 100 MG TABLET PO SCH (17:43)
[2021-06-15] MEDS: Finasteride 5 MG TABLET PO SCH (17:43)
[2021-06-15] MEDS: Zinc Sulfate 220 MG CAPSULE PO SCH (17:43)
[2021-06-15] MEDS: Mirtazapine 15 MG TABLET PO SCH (21:21)
[2021-06-15] MEDS: Insulin DETEMIR 100 UNIT/ML X5UNITS SUBQ SCH (21:21)
[2021-06-16] MEDS: *HR* Heparin 5,000 UNIT/ML VIAL SQ SCH (06:06)
[2021-06-16 06:51] LABS: Basophils % 0.3 %; Eosinophils % 0.1 %; Hematocrit 31.8 % (37.5-50.1); Hemoglobin 10.9 g/dL (12.9-16.9); Immature Granulocytes % 7.2 % (0-4); Lymphocytes # 0.6 K/mcL (0.6-4.6); Lymphocytes % 7.3 %; Mean Corpuscular HGB Conc 34.3 g/dL (31.6-35.5); Mean Corpuscular Hemoglobin 33.4 pg (28.0-33.3); Mean Corpuscular Volume 97.5 fL (83.0-100.0); Monocytes # 0.8 K/mcL (0.0-1.3); Monocytes % 8.9 %; Neutrophils # 6.6 K/mcL (1.6-8.9); Nucleated Red Blood Cells 0.3 /100 WBC (0); Platelet Count 177 K/mcL (140-400); Red Blood Count 3.26 M/mcL (4.19-5.50); Red Cell Distribution Width 14.4 % (11.5-14.5); Segmented Neutrophils % 76.2 %; White Blood Count 8.7 K/mcL (4.3-11.1)
[2021-06-16] MEDS: Budesonide/Formoterol 160/4.5 1 PUFF INH IH SCH (08:14)
[2021-06-16] MEDS: Aspirin Enteric Coated 81 MG Tablet PO SCH (09:33)
[2021-06-16] MEDS: Cyanocobalamin (B-12) 1,000 MCG TABLET PO SCH (09:33)
[2021-06-16] MEDS: amLODIPine 5 MG TABLET PO SCH (09:33)
[2021-06-16] MEDS: Cholecalciferol (D-3) 1,000 UNIT (25MCG) TABLET PO SCH (09:33)
[2021-06-16] MEDS: Gabapentin 300 MG CAPSULE PO SCH (09:33)
[2021-06-16] MEDS: dexAMETHasone 4 MG TABLET PO SCH (09:33)
[2021-06-16] MEDS: Sucralfate 1 GM TABLET PO SCH (09:33)
[2021-06-16] MEDS: Metoprolol XL (24 HR) Succ 25 MG TAB.ER.24H PO SCH (09:34)
[2021-06-16] MEDS: Insulin LISPRO 300 UNITS/3 ML VIAL SUBQ SCH (09:34)
[2021-06-16] MEDS: *HR* Acetylcysteine 20% 600 MG/3 ML ORAL SYRINGE PO SCH (09:34)
[2021-06-16 10:22] LABS: Calcium 9.8 mg/dL (8.6-10.3); Potassium 4.6 mEq/L (3.5-5.1)
[2021-06-16 15:00] VITALS: BP 132/76; PULSE 172; TEMP 98.3; O2SAT 81
== END 2021-06-16 16:41 | disposition home or self-care (01) | DRG 177 ==
LOC: 3ANU 18:27 → EMEROOARM 18:27 → SUATTDRO 22:13 → 3ANU 23:21
PROVIDERS: ADMIT Internal Medicine; ATTEND Internal Medicine